=== PATIENT | female | born 1955 | race Two or more races ===

== ENCOUNTER 2018-08-12 08:52 | Observation (INO) | payer OTHER ==
[2018-08-12 09:41] LABS: Absolute Lymphocytes (CBC) 1.9 K/uL (0.7-4.9); Absolute Monocytes 0.9 K/uL (0.1-1.3); Absolute Neutrophil 7.2 K/uL (1.8-8.0); Basophils % 0.3 % (0-1.3); Eosinophils % 0.6 % (0-4.4); Hematocrit 42.4 % (36.0-45.0); Lymphocytes % 18.9 % (15.3-44.8); MPV 7.7 fL (7.6-11.3); Monocytes % 9.2 % (3.3-12.3); RBC Red Blood Cell Count 4.58 M/uL (3.86-4.86)
[2018-08-12] MEDS ORDERED: ONDANSETRON 4 MG/2 ML VIAL ONE (09:53)
[2018-08-12] MEDS ORDERED: MEPERIDINE HCL 25 MG/0.5 ML ONE (09:53)
[2018-08-12 09:57] LABS: Albumin 3.7 g/dL (3.4-5.0); Bilirubin Direct 0.1 mg/dL (0-0.2); Bilirubin Total 0.6 mg/dL (0.2-1.0); Potassium 3.9 mmol/L (3.5-5.1); Protein, Total 7.9 g/dL (6.4-8.2)
[2018-08-12 10:33] LABS: Urine Blood TRACE (NEG); Urine Glucose NEGATIVE (NEG); Urine Protein NEGATIVE (NEG); Urine pH 5.5 (5.0-7.0)
[2018-08-12 10:41] LABS: Urine Bacteria 20-50 /HPF (<20); Urine Culture Reflex Order REFLEXED; Urine RBC <5 /HPF (NONE SEEN)
--- NOTE | 2018-08-12 11:25 | RAD REPORT ---
EXAM DESCRIPTION: CT - Abdomen Pelvis Wo Contrast - 08/12/2018 11:02 am CLINICAL HISTORY: Abdominal pain right lower pain COMPARISON: 2014 TECHNIQUE: Computed axial tomography of the abdomen and pelvis was obtained. IV was not requested. O ral contrast was given. Coronal reconstructions performed. All CT scans are performed using dose optimization technique as appropriate and may include automated exposure control or mA/KV adjustment according to patient size. FINDINGS: The evaluation of solid organs and vessels is limited secondary to the lack of contrast a dministration. 41 millimeter hepatic cyst is decreased in size from the prior exam. Fatty liver The Spleen, pancreas, adrenals and left kidney appear grossly normal. Small low-density right renal masses are nonspecific without IV contrast but probably represent cysts A 35 millimeter left ovarian cyst without significant free-fluid The appendix extends superiorly from the cecum with marked stranding in the adjacent fat. The appendi x is thickened. Small umbilical hernia IMPRESSION: Appendicitis.
--- NOTE | 2018-08-12 11:44 | ER ---
Nurse's Notes [facility] Name: Jim Ibrahim Age: 63 yrs Sex: Female : 1955 Arrival Date: 08/12/2018 Time: 08:55 Bed 15 Private MD: Diagnosis: Acute appendicitis Presentation: 08/12 09:01 Presenting complaint: Patient states: intermittent pain to RLQ and right low back x 2 aa5 days ago. Pt denies N/V/D, denies urinary symptoms. Transition of care: patient was not received from another setting of care. Onset of symptoms was August 2018. Risk Assessment: Do you want to hurt yourself or someone else? Patient reports no desire to harm self or others. Initial Sepsis Screen: Does the patient meet any 2 criteria? No. Patient's initial sepsis screen is negative. Does the patient have a suspected source of infection? No. Patient's initial sepsis screen is negative. Care prior to arrival: None. 09:01 Method Of Arrival: Ambulatory aa5 09:01 Acuity: MARY ANN 3 aa5 Historical: - Allergies: 09:03 Aspirin; aa5 09:03 PENICILLINS; aa5 09:03 Codeine; aa5 - PMHx: 09:03 None; aa5 - PSHx: 09:03 Cholecystectomy; ear sx; aa5 - Immunization history:: Flu vaccine is not up to date. - Social history:: Smoking status: Patient/guardian denies using tobacco. - Ebola Screening: : No symptoms or risks identified at this time. - Family history:: not pertinent. - Hospitalizations: : No recent hospitalization is reported. Screenin:10 Abuse screen: Denies threats or abuse. Nutritional screening: No deficits noted. aa5 Tuberculosis screening: No symptoms or risk factors identified. Fall Risk None identified. Assessment: 09:02 General: Appears uncomfortable, Behavior is calm, cooperative. Pain: Complains of pain aa5 in right lower quadrant and right low back Pain does not radiate. Pain currently is 0 out of 10 on a pain scale. Quality of pain is described as sharp, shooting, Pain began 2-3 days ago. Is intermittent, Noted to be resistant to movement. Neuro: Level of Consciousness is awake, alert, obeys commands, Oriented to person, place, time, situation. Cardiovascular: Heart tones S1 S2 present Rhythm is regular. Respiratory: Airway is patent Respiratory effort is even, unlabored, Respiratory pattern is regular, symmetrical. GI: Abdomen is flat, non-distended, Bowel sounds present X 4 quads. Abd is soft X 4 quads Abdomen is tender to palpation in right lower quadrant. : Denies burning with urination, inability to void, urinary frequency, urgency. EENT: No signs and/or symptoms were reported regarding the EENT system. Derm: Skin is pink, warm \\T\\ dry. Musculoskeletal: Range of motion: intact in all extremities. 09:40 Reassessment: Pt finished CT oral contrast, CT notified . aa5 09:40 Reassessment: Patient is alert, oriented x 3, equal unlabored respirations, skin aa5 warm/dry/pink. 09:40 Reassessment: Pt sitting up in bed, pt refused Zofran and Demerol. Demerol 25 mg total aa5 wasted by me and witnessed by Daly Galdamez RN. Pt states "the pain is okay right now and I don't do well with pain medication" . 09:40 Reassessment: Pt refused IV Demerol. Wasted 25 mg with Mary Kaplan RN. ss 10:28 Reassessment: Patient is alert, oriented x 3, equal unlabored respirations, skin aa5 warm/dry/pink. Pt lying down in bed. Awaiting CT scan, pt notified of wait time. . 10:28 General: Appears comfortable. aa5 10:57 Reassessment: Pt taken to CT via wheelchair . aa5 10:57 Reassessment: Patient is alert, oriented x 3, equal unlabored respirations, skin aa5 warm/dry/pink. 12:10 Reassessment: Surgeon at bedside. em 12:19 Reassessment: Patient is alert, oriented x 3, equal unlabored respirations, skin aa5 warm/dry/pink. Vital Signs: 09:03 BP 123 / 69; Pulse 61; Resp 16 S; Temp 97.7(O); Pulse Ox 98% on R/A; Weight 59.42 kg aa5 (R); Height 4 ft. 11 in. (149.86 cm) (R); Pain 0/10; 10:30 BP 107 / 73; Pulse 60; Resp 16 S; Pulse Ox 97% on R/A; aa5 12:00 BP 105 / 70; Pulse 55; Resp 18 S; Pulse Ox 99% on R/A; aa5 09:03 Body Mass Index 26.46 (59.42 kg, 149.86 cm) aa5 ED Course: 08:55 Patient arrived in ED. mr 09:01 Arm band placed on. aa5 09:01 Patient has correct armband on for positive identification. Placed in gown. Bed in low aa5 position. Call light in reach. Side rails up X 1. Adult w/ patient. 09:02 Triage completed. aa5 09:04 Mary Kaplan, RN is Primary Nurse. aa5 09:08 Hector Coates MD is Attending Physician. rn 09:31 Initial lab(s) drawn, by me, sent to lab. Inserted saline lock: 20 gauge in left dh3 antecubital area, using aseptic technique. Blood collected. 10:12 Urine collected: clean catch specimen, clear. 3 10:21 No provider procedures requiring assistance completed. aa5 11:04 Abdomen In Process Unspecified. EDMS 11:42 Evangelist Drummond MD is Hospitalizing Provider. rn 12:25 Patient admitted, IV remains in place. aa5 Administered Medications: 09:59 Not Given (Patient Refused): Zofran 4 mg IVP once; over 2 minutes aa5 09:59 Not Given (Patient Refused): Demerol - Meperidine 12.5 mg IVP once aa5 11:40 Drug: Flagyl 500 mg Volume: 100 ml; Route: IVPB; Rate: 200 ml/hr; Infused Over: 30 aa5 mins; Site: left antecubital; 12:19 Follow up: Response: No adverse reaction; IV Status: Completed infusion aa5 12:19 Drug: Cipro 400 mg Volume: 200 ml; Route: IVPB; Infused Over: 60 mins; Site: left aa5 antecubital; 12:22 Follow up: Response: No adverse reaction; IV Status: Infusion continued upon admission aa5 Outcome: 11:42 Decision to Hospitalize by Provider. rn 12:22 Admitted to OR accompanied by nurse, via wheelchair, with chart. aa5 12:22 Condition: stable 12:22 Instructed on the need for admit, Demonstrated understanding of instructions. 12:25 Patient left the ED. aa5 Signatures: Dispatcher [employer] EDMS Gonzales, Elizabeth mr Missael, Rebel, CHILD CARE CENTER ADMINISTRATOR CH[facility] CARE CENTER ADMINISTRATOR Hector Pathak MD MD rn Calderon, Audri, RN RN aa5 Daly Galdamez RN RN ss Wagner, Erika 3
--- NOTE | 2018-08-12 11:44 | EDPHYS ---
Physician Documentation [facility] Name: Jim Ibrahim Age: 63 yrs Sex: Female : 1955 Arrival Date: 08/12/2018 Time: 08:55 Bed 15 Private MD: ED Physician Hector Coates HPI: 08/12 09:17 This 63 yrs old Female presents to ER via Ambulatory with complaints of Abdominal rn Pain. 09:17 The patient presents with abdominal pain right lower quadrant. Onset: The rn symptoms/episode began/occurred 2 day(s) ago. The symptoms do not radiate. Associated signs and symptoms: Pertinent positives: nausea, Pertinent negatives: constipation, diarrhea, dysuria, fever, shortness of breath, vomiting. Modifying factors: The symptoms are alleviated by nothing, the symptoms are aggravated by touching the area. Severity of pain: At its worst the pain was moderate in the emergency department the pain is unchanged. The patient has not experienced similar symptoms in the past. The patient has not recently seen a physician. REports RLQ abd pain, began 2 days ago, intermittent, not assoc with vomiting/diarrhea, no urinary symptoms. No hx of kidney stones. Also having right lower back pain.. Historical: - Allergies: 09:03 Aspirin; aa5 09:03 PENICILLINS; aa5 09:03 Codeine; aa5 - PMHx: 09:03 None; aa5 - PSHx: 09:03 Cholecystectomy; ear sx; aa5 - Immunization history:: Flu vaccine is not up to date. - Social history:: Smoking status: Patient/guardian denies using tobacco. - Ebola Screening: : No symptoms or risks identified at this time. - Family history:: not pertinent. - Hospitalizations: : No recent hospitalization is reported. ROS: 09:17 Constitutional: Negative for fever, chills, and weight loss, Eyes: Negative for injury, rn pain, redness, and discharge, Neck: Negative for injury, pain, and swelling, Cardiovascular: Negative for chest pain, palpitations, and edema, Respiratory: Negative for shortness of breath, cough, wheezing, and pleuritic chest pain, Abdomen/GI: + abd pain and nausea, negative for diarrhea and vomiting. MS/Extremity: Negative for injury and deformity, Skin: Negative for injury, rash, and discoloration, Neuro: Negative for headache, weakness, numbness, tingling, and seizure. Exam: 09:17 Constitutional: This is a well developed, well nourished patient who is awake, alert, rn and in no acute distress. Head/Face: Normocephalic, atraumatic. Respiratory: No increased work of breathing, no retractions or nasal flaring. Abdomen/GI: soft, + RLQ tenderness, no rebound, + guarding Back: No spinal tenderness. No costovertebral tenderness. Full range of motion. Skin: Warm, dry with normal turgor. Normal color with no rashes, no lesions, and no evidence of cellulitis. MS/ Extremity: Pulses equal, no cyanosis. Neurovascular intact. Full, normal range of motion. Equal circumference. Neuro: Awake and alert, GCS 15, oriented to person, place, time, and situation. Cranial nerves II-XII grossly intact. Motor strength 5/5 in all extremities. Sensory grossly intact. Vital Signs: 09:03 BP 123 / 69; Pulse 61; Resp 16 S; Temp 97.7(O); Pulse Ox 98% on R/A; Weight 59.42 kg aa5 (R); Height 4 ft. 11 in. (149.86 cm) (R); Pain 0/10; 10:30 BP 107 / 73; Pulse 60; Resp 16 S; Pulse Ox 97% on R/A; aa5 12:00 BP 105 / 70; Pulse 55; Resp 18 S; Pulse Ox 99% on R/A; aa5 09:03 Body Mass Index 26.46 (59.42 kg, 149.86 cm) aa5 MDM: 09:08 Patient medically screened. rn 11:41 Differential diagnosis: appendicitis. Data reviewed: vital signs, nurses notes, laborer cook house test result(s), radiologic studies, CT scan, and as a result, I will admit patient. Counseling: I had a detailed discussion with the patient and/or guardian regarding: the historical points, exam findings, and any diagnostic results supporting the discharge/admit diagnosis, lab results, radiology results, the need for further work-up and treatment in the hospital. Response to treatment: the patient's symptoms have mildly improved after treatment. Admission orders: after a detailed discussion of the patient's condition and case, the admit orders are written by me. ED course: Consulted With Dr. Drummond, will admit to his service, is NPO, abx ordered. Pt refused pain medication and nausea medication.. 08/12 09:14 Order name: Basic Metabolic Panel; Complete Time: 10:00 rn 08/12 09:14 Order name: CBC with Diff; Complete Time: 10:00 rn 08/12 09:14 Order name: Hepatic Function; Complete Time: 10:00 rn 08/12 09:14 Order name: Lipase; Complete Time: 10:00 rn 08/12 09:14 Order name: Urine Microscopic Only; Complete Time: 11:35 rn 08/12 10:12 Order name: Urine Dipstick--Ancillary (enter results); Complete Time: 11:35 eb 08/12 09:19 Order name: Abdomen ; Complete Time: 11:35 EDMS 08/12 10:45 Order name: Urine Culture EDMS 08/12 12:17 Order name: NPO EDMS 08/12 09:14 Order name: IV Saline Lock; Complete Time: 09:32 rn 08/12 09:14 Order name: Labs collected and sent; Complete Time: 09:32 rn 08/12 09:14 Order name: Urine Dipstick-Ancillary (obtain specimen); Complete Time: 09:59 rn Administered Medications: 09:59 Not Given (Patient Refused): Zofran 4 mg IVP once; over 2 minutes aa5 09:59 Not Given (Patient Refused): Demerol - Meperidine 12.5 mg IVP once aa5 11:40 Drug: Flagyl 500 mg Volume: 100 ml; Route: IVPB; Rate: 200 ml/hr; Infused Over: 30 aa5 mins; Site: left antecubital; 12:19 Follow up: Response: No adverse reaction; IV Status: Completed infusion aa5 12:19 Drug: Cipro 400 mg Volume: 200 ml; Route: IVPB; Infused Over: 60 mins; Site: left aa5 antecubital; 12:22 Follow up: Response: No adverse reaction; IV Status: Infusion continued upon admission aa5 Disposition: 08/12/18 11:42 Hospitalization ordered by Evangelist Drummond for Inpatient Admission. Preliminary diagnosis is Acute appendicitis. - Bed requested for Telemetry/MedSurg (Inpatient). - Status is Inpatient Admission. aa5 - Condition is Stable. - Problem is new. - Symptoms have improved. UTI on Admission? No Signatures: Dispatcher [employer] [facility] Hector Coates MD MD rn Calderon, Audri, RN RN aa5 Corrections: (The following items were deleted from the chart) 09:19 09:17 Abdomen Pelvis W Con+CT.RAD.BRZ ordered. [facility] 12:25 11:42 Hospitalization Ordered by Evangelist Drummond MD for Inpatient Admission. Preliminary aa5 diagnosis is Acute appendicitis. Bed requested for Telemetry/MedSurg (Inpatient). Status is Inpatient Admission. Condition is Stable. Problem is new. Symptoms have improved. UTI on Admission? No. rn
[2018-08-12] MEDS ORDERED: CIPROFLOXACIN 400mg IV 400 MG/200 ML BAG IV ONE (11:54)
[2018-08-12] MEDS ORDERED: METRONIDAZOLE 500mg IVPB 500 MG/100 ML BAG IV ONE (11:55)
[2018-08-12] MEDS ORDERED: ONDANSETRON 4 MG/2 ML VIAL IV PRN (12:13)
[2018-08-12] MEDS ORDERED: ROCURONIUM 50 MG/5 ML VIAL IV ONE (12:18)
[2018-08-12] MEDS ORDERED: MIDAZOLAM HCL 2 MG/2 ML INJ ONE (12:18)
[2018-08-12] MEDS ORDERED: PROPOFOL 200 MG/20 ML VIAL IV ONE (12:18)
[2018-08-12] MEDS ORDERED: DEXAMETHASONE 10 MG/ML VIAL ONE (12:18)
[2018-08-12] MEDS ORDERED: LIDOCAINE 2% MPF 5 ML VIAL ONE (12:18)
[2018-08-12] MEDS ORDERED: FENTANYL CITR 100 MCG/2 ML ONE (12:18)
[2018-08-12] MEDS ORDERED: Ringers Lactate 1,000 ML IV ONE (12:42)
[2018-08-12] MEDS ORDERED: D5 0.45 NS 1,000 ML IV SCH (13:00)
--- NOTE | 2018-08-12 13:00 | P.HP ---
Date of Service: 08/12/18 PC: This 63-year-old female presented to the emergency room with severe right lower quadrant abdominal pain for diagnosis and treatment. HPC: Patient had sudden onset of right lower quadrant abdominal pain early this morning. Describes as severe. It still is there. PMH: Negative PSHx: Previous tubal ligation, previous cholecystectomy SOC: Allergic to aspirin codeine and Demerol SYS REVIEW: No cough, wheeze, shortness of breath. No chest pain or palpitations. No urinary complaints. Walks 5 miles a day, and swims Daily O/E awake alert uncomfortable HEENT: Not jaundice Chest: Chest movement equal bilaterally ABD: Tender with guarding in the right lower quad LOCO: Intact DATA: White cell count, CT scan however demonstrates findings consistent with the clinical diagnosis of acute appendicitis IMPRESSION: Acute abdomen with appendicitis PLAN: I will take her to the operating room for laparoscopic possible open appendectomy. The risks of this procedure have been discussed. The possibility of bleeding, infection, injury to bowel and blood vessels, as well as surrounding structures was outlined. The possible need for an open and/or further surgeries and procedures was discussed. She understands and wants us to proceed. We will also address issues at her belly but were she may have a small hernia. She is aware of this.
[2018-08-12] MEDS ORDERED: TRAMADOL 37.5mg/APAP 325mg PER TAB PO PRN (13:52)
--- NOTE | 2018-08-12 13:53 | P.OP ---
Preoperative diagnosis: Acute abdomen with appendicitis Postoperative diagnosis: The same Primary procedure: Laparoscopic appendectomy Anesthesia: General Estimated blood loss: Less than 10 cc Specimen: 1 appendix sent for histopathology Operative Technique: The patient brought to the operating room placed supine on the table. After the induction of adequate general endotracheal anesthesia, the area of the abdomen was prepped with a DuraPrep solution, and she was draped in usual aseptic manner. A subumbilical incision was made. This brought down through the skin and subcutaneous tissue. The Visiport was now used to enter the peritoneal cavity and created pneumoperitoneum to approximately 12 mm of mercury. Under direct vision a 5 mm trocar was placed in the upper midline and another in the lower midline we were now able to visualize the peritoneal cavity. With the patient placed in Trendelenburg and rolled to the left we could see the right lower quadrant. A markedly inflamed appendix was seen going out laterally abutting against the abdominal wall flow and then going into the retroperitoneum. The junction of the appendix with the cecum was identified. An opening was made in this area. The linear Stapler was now placed across the base the appendix and fired. The mesentery of the appendix was taken down and the appendix was dissected in a retro of suspected manner into the retroperitoneum to fully excise it and sent for histopathology. The specimen having been attached was placed into an Endo-Catch and brought out through the umbilical trocar site. Attention was turned back towards the peritoneal cavity. The right lower quadrant was irrigated with a copious amount of saline solution. The effluent was aspirated using the peritoneal cavity. The umbilical trocar site was now approximated using 2 interrupted sutures of absorbable material. At the end of procedure the peritoneum was collapsed, the sutures tied, and heather applied to the skin. It also should be noted we did a TA PP block of the anterior abdominal wall using 0.25% Marcaine on the right side. At the end of procedure she was stable when sent to the recovery room. Needle sponge instrument count were correct. No drains were placed. Complications: None Transferred to: Recovery Room Condition: Good
[2018-08-12 14:24] VITALS: O2SAT 97
[2018-08-12 15:04] VITALS: BMI 26.4
[2018-08-12 16:38] VITALS: BP 135/78; TEMP 97.8
== END 2018-08-12 18:38 | disposition home or self-care (01) ==
LOC: ER 08:52 → ERHOLD 12:13 → INTOOBSV 12:13 → 2ND 14:12
PROVIDERS: ADMIT Surgery; ATTEND Surgery
PROC: 0DTJ4ZZ Resection of Appendix, Percutaneous Endoscopic Approach (ICD-10-PCS; principal; 2018-08-12 12:00)
DX: K35.80 Unspecified acute appendicitis (principal); K76.0 Fatty (change of) liver, not elsewhere classified; K42.9 Umbilical hernia without obstruction or gangrene; N83.292 Other ovarian cyst, left side; K76.89 Other specified diseases of liver
CPT/HCPCS: 36415; 74176; 80048; 80076; 81003; 81015; 83690; 85025; 87086; 87088; 88304; 96365; 96375; 99285; G0378; J0744; J1100; J2175; J2250; J2405; J2704; J3010

== ENCOUNTER 2021-05-07 10:43 | Emergency (ER) | payer OTHER ==
--- OUTSIDE RECORDS SUMMARY | 2021-05-07 10:46 | XMS REPORT | Continuity of Care Document ---
:1955 Author Organization [facility] t Address [address] [place] [address] Care Team Providers Name Role Phone Adair Samuel Attending Clinician Unavailable Adair MOLINA Attending Clinician Unavailable Physician, Primary or Family Admitting Clinician Unavailabl e Payers Payer Name Policy Type Policy Number Effective Date Expiration Date S blanca MEDICARE PART A [id number] 2019 \T\ B 00:00:00 [employer] INDEMNITY [id number] 2019 00:00:00 Problems This patient has no known problems. Allergies, Adverse Reactions, Alerts Allergy Allergy Status Severity Reaction(s) Onset Inactive Treating Comm ents Source Name Type Date Date Clinician NO KNOWN Drug Active [facility] ALLERGIE Class [facility] Medications This patient has no known medications. Procedures This patient has no known procedures. Encounters Start End Encounter Admission Attending Care Care Encounter Source Date/Time Date/Time Type Type Clinicians Facility Department ID 2020-06-03 2020-06-03 [id number] 17:05:00 17:05:00 [id number] [facility] 2020-04-10 2020-04-10 Outpatient Ilda MOLINA [facility] [id number] [facility] 14:50:00 14:50:00 ELVIS [id number] [facility] 2020-04-10 2020-04-10 Outpatient Ilda MOLINA [facility] [id number] [facility] 14:50:00 14:50:00 ELVIS [facility] 2020-03-13 2020-03-13 Outpatient Ilda MOLINA [facility] [id number] [facility] 15:30:00 15:30:00 ELVIS [id number] [facility] 2020-03-13 2020-03-13 Outpatient Ilda MOLINA [facility] [id number] [facility] 15:30:00 15:30:00 ELVIS [facility] 2020-03-13 2020-03-13 Outpatient Ilda MOLINA [facility] [id number] [facility] 15:30:00 15:30:00 ELVIS [facility] 2020-03-13 2020-03-13 [facility] [id number] [facility] 15:30:00 15:30:00 ELVIS [facility] Results This patient has no known results.
--- NOTE | 2021-05-07 11:02 | RAD REPORT ---
EXAM DESCRIPTION: CT - Ct Stroke Brain Wo Cont - 05/07/2021 10:52 am CLINICAL HISTORY: NUMBNESS COMPARISON: No comparisons TECHNIQUE: All CT scans are performed using dose optimization technique as appropriate and may inclu de automated exposure control or mA/KV adjustment according to patient size. FINDINGS: No intracranial hemorrhage, hydrocephalus or extra-axial fluid collection.No areas of brai n edema or evidence of midline shift. The paranasal sinuses and mastoids are clear. The calvarium is intact. IMPRESSION: No acute intracranial abnormality. Discussed with Angelo by Luz at 1057 at 05/07/21
[2021-05-07 11:34] LABS: Absolute Lymphocytes (CBC) 2.1 K/uL (0.7-4.9); Hematocrit 41.4 % (36.0-45.0); RBC Red Blood Cell Count 4.49 M/uL (3.86-4.86)
[2021-05-07] MEDS ORDERED: dexAMETHasone 10 MG/ML VIAL ONE (12:07)
[2021-05-07 12:19] LABS: Protime INR 0.93
[2021-05-07 12:25] LABS: Potassium 3.7 mmol/L (3.5-5.1)
--- NOTE | 2021-05-07 12:43 | ER ---
Nurse's Notes [facility] Name: Jim Ibrahim Age: 65 yrs Sex: Female : 1955 Arrival Date: 05/07/2021 Time: 10:44 Bed 3 Private MD: Diagnosis: Mendez's palsy Presentation: 05/07 10:40 Chief complaint: Patient states: I woke up today and was drinking some water and it was jg9 running out of my mouth, I was ok when I went to bed. Right sided facial droop noted, no other symptoms reported at this time. 10:40 Method Of Arrival: Ambulatory j9 10:40 Acuity: MARY ANN 2 jg9 10:50 Ebola Screen: Patient negative for fever greater than or equal to 101.5 degrees jg9 Fahrenheit, and additional compatible Ebola Virus Disease symptoms Patient denies exposure to infectious person. Patient denies travel to an Ebola-affected area in the 21 days before illness onset. Initial Sepsis Screen: Does the patient meet any 2 criteria?. Risk Assessment: Do you want to hurt yourself or someone else? Patient reports no desire to harm self or others. Onset of symptoms is unknown. 13:03 Coronavirus screen: Vaccine status: Patient reports receiving the 2nd dose of the covid ll1 vaccine. Client denies travel out of the [place] in the last 14 days. At this time, the client does not indicate any symptoms associated with coronavirus-19. Initial Sepsis Screen: Does the patient have a suspected source of infection? No. Patient's initial sepsis screen is negative. Triage Assessment: 10:40 General: Appears in no apparent distress. Behavior is calm. Pain: Denies pain. Neuro: jg9 Level of Consciousness is awake, alert, obeys commands, Oriented to person, place, time, situation, Court Attendant are equal bilaterally Moves all extremities. Gait is steady, Speech is slurred, Facial droop on right, Pupils are PERRLA, Intact. Historical: - Allergies: 10:50 Aspirin; jg9 10:50 Codeine; jg9 10:50 PENICILLINS; jg9 - Immunization history:: Adult Immunizations up to date. - Social history:: Smoking status: Patient denies any tobacco usage or history of. Screenin:50 Abuse screen: Denies threats or abuse. Denies injuries from another. Nutritional jg9 screening: No deficits noted. Tuberculosis screening: No symptoms or risk factors identified. Fall Risk None identified. Assessment: 11:27 Reassessment: No changes from previously documented assessment. Patient and/or family ll1 updated on plan of care and expected duration. Pain level reassessed. Patient is alert, oriented x 3, equal unlabored respirations, skin warm/dry/pink. 12:30 Reassessment: No changes from previously documented assessment. Patient and/or family ll1 updated on plan of care and expected duration. Pain level reassessed. Patient is alert, oriented x 3, equal unlabored respirations, skin warm/dry/pink. 13:02 Reassessment: No changes from previously documented assessment. Patient and/or family ll1 updated on plan of care and expected duration. Pain level reassessed. Patient is alert, oriented x 3, equal unlabored respirations, skin warm/dry/pink. Patient states feeling better. Patient states symptoms have improved. Vital Signs: 11:27 BP 131 / 88; Pulse 58; Resp 18; Pulse Ox 97% on R/A; ll1 13:01 BP 118 / 76; Pulse 50; Resp 17; Temp 98.0; Pulse Ox 98% on R/A; Pain 0/10; ll1 NIH Stroke Scale Scores: 10:57 NIHSS Score: 1 pm1 ED Course: 10:44 Patient arrived in ED. ds1 10:46 Cristi Stephens NP is PHCP. pm1 10:46 Feliz Griggs MD is Attending Physician. pm1 10:49 Triage completed. jg9 10:50 Nilay Bernabe, RN is Primary Nurse. ll1 10:50 Arm band placed on right wrist. jg9 10:50 Patient placed in an exam room, on a stretcher. ll1 10:50 Patient has correct armband on for positive identification. Bed in low position. Call ll1 light in reach. Side rails up X2. longwall shearer operator on. Pulse ox on. NIBP on. 10:52 CT Stroke Brain w/o Contrast In Process Unspecified. EDMS 11:26 Inserted saline lock: 22 gauge in left wrist, using aseptic technique. Blood collected. ll1 12:33 Stroke CXR 1 View In Process Unspecified. EDMS 12:42 John Toure MD is Referral Physician. pm1 13:01 No provider procedures requiring assistance completed. IV discontinued, intact, ll1 bleeding controlled, No redness/swelling at site. Pressure dressing applied. 13:03 passed swallow screen, no problems. ll1 Administered Medications: 12:09 Drug: Decadron - Dexamethasone 10 mg Route: IVP; Site: left wrist; ll1 13:02 Follow up: Response: No adverse reaction 1 Outcome: 12:42 Discharge ordered by . pm1 13:03 Discharged to home via ambulance. ll1 13:03 Condition: stable 13:03 Discharge instructions given to patient, family, Instructed on discharge instructions, follow up and referral plans. medication usage, Demonstrated understanding of instructions, follow-up care, medications, Prescriptions given X 1. 13:04 Patient left the ED. ll1 NIH Stroke Scale - NIH Stroke Score Date: 05/07/2021 Time: 10:57 Total Score = 1 1a. Level of Consciousness (LOC) - 0(Alert) 1b. Level of Consciousness (LOC) (Month \T\ Age) - 0(Both) 1c. LOC Commands (Open \T\ Closes Eyes/Dot Net Developer) - 0(Both) 2. Best Gaze (Lateral Gaze Paresis) - 0(Normal) 3. Visual Field Loss - 0(No visual loss) 4. Facial Palsy - 1(Minor Paralysis) 5a. Left Arm: Motor (10-second hold) - 0(No drift) 5b. Right Arm: Motor (10-second hold) - 0(No drift) 6a. Left Leg: Motor (5-second hold - always test supine) - 0(No drift) 6b. Right Leg: Motor (5-second hold - always test supine) - 0(No drift) 7. Limb Ataxia (finger/nose \T\ heel/linares - test with eyes open) - 0(Absent) 8. Sensory Loss (pinprick arms/legs/face) - 0(Normal) 9. Best Language: Aphasia (description/naming/reading) - 0(No aphasia) 10. Dysarthria (speech clarity - read or repeat words) - 0(Normal) 11. Extinction and Inattention (visual/tactile/auditory/spatial/personal) - 0(No abnormality) Initials: pm1 Signatures: Dispatcher [employer] [facility] Michaelle Pedersen dsCristi Hernandez NP COMPLIANCE REPRESENTATIVE DEALER pm1 Nilay Bernabe, RN RN ll1 Tamia Moy, RN RN jg9
--- NOTE | 2021-05-07 12:43 | EDPHYS ---
Physician Documentation [facility] Name: Jim Ibrahim Age: 65 yrs Sex: Female : 1955 Arrival Date: 05/07/2021 Time: 10:44 Bed 3 Private MD: ED Physician Feliz Griggs HPI: 05/07 10:48 This 65 yrs old Female presents to ER via Ambulatory with complaints of Weakness. pm1 10:48 The patient's problem is reported as weakness, in the left side of face. pm1 10:48 Onset: The symptoms/episode began/occurred this morning. Duration: The episode is pm1 continuous. Context: symptoms became apparent when she attempted to drink water. The water fell out of her mouth, occurred at home. The symptoms are alleviated by nothing. The symptoms are aggravated by nothing. Associated signs and symptoms: Pertinent positives: left eye blurry vision and circumoral numbness. Severity of symptoms: in the emergency department the symptoms are unchanged. Patient's baseline: Neuro: alert and fully oriented, Motor: no deficits, Ambulation: walks without assistance, Speech: normal. The patient has not experienced similar symptoms in the past, but family has similar symptoms, daughter, dx with bells palsy in the past. The patient has not recently seen a physician. Historical: - Allergies: 10:50 Aspirin; jg9 10:50 Codeine; jg9 10:50 PENICILLINS; jg9 - Immunization history:: Adult Immunizations up to date. - Social history:: Smoking status: Patient denies any tobacco usage or history of. ROS: 10:48 Constitutional: Negative for fever, chills, and weight loss, Cardiovascular: Negative pm1 for chest pain, palpitations, and edema, Respiratory: Negative for shortness of breath, cough, wheezing, and pleuritic chest pain, Abdomen/GI: Negative for abdominal pain, nausea, vomiting, diarrhea, and constipation, Back: Negative for injury and pain, MS/Extremity: Negative for injury and deformity, Skin: Negative for injury, rash, and discoloration. 10:48 Neuro: Positive for numbness, weakness, of the left side of face. 10:48 All other systems are negative. Exam: 10:57 Radiologist reports: Negative CT head pm1 10:57 Constitutional: This is a well developed, well nourished patient who is awake, alert, and in no acute distress. Head/Face: Normocephalic, atraumatic. 10:57 Back: No spinal tenderness. No costovertebral tenderness. Full range of motion. Skin: Warm, dry with normal turgor. Normal color with no rashes, no lesions, and no evidence of cellulitis. MS/ Extremity: Pulses equal, no cyanosis. Neurovascular intact. Full, normal range of motion. 10:57 Cardiovascular: Exam negative for acute changes, Rate: normal, Rhythm: regular, Pulses: no pulse deficits are appreciated. 10:57 Respiratory: Exam negative for acute changes, respiratory distress, shortness of breath, Breath sounds: are clear throughout. 10:57 Abdomen/GI: Exam negative for acute changes, Inspection: abdomen appears normal, Palpation: abdomen is soft and non-tender, in all quadrants. 10:57 Neuro: Orientation: is normal, Mentation: is normal, Memory: is normal, Cranial nerves: CN II- XII are normal as tested, Cerebellar function: normal finger to nose testing, Motor: moves all fours, strength is 5/5 in all extremities, Sensation: no obvious gross deficits. 10:57 Neuro: Patient with smile drawing to the right side. Patient with difficulty fully closing left eyelids and left side of forehead sparing with raising eyebrows. Vital Signs: 11:27 BP 131 / 88; Pulse 58; Resp 18; Pulse Ox 97% on R/A; ll1 13:01 BP 118 / 76; Pulse 50; Resp 17; Temp 98.0; Pulse Ox 98% on R/A; Pain 0/10; ll1 NIH Stroke Scale Scores: 10:57 NIHSS Score: 1 pm1 MDM: 10:47 Patient medically screened. pm1 10:58 ED course: Negative CT head report. pm1 11:22 ED course: Dr. Archibald evaluated the patient and agrees that the patient has Mendez's pm1 Palsy, not stroke. 12:20 Data reviewed: vital signs. Data interpreted: Pulse oximetry: on room air is 98 %. pm1 Interpretation: normal. 13:02 ED course: Patient with improvement of symptoms with steroid given in the ER. pm1 13:02 Counseling: I had a detailed discussion with the patient and/or guardian regarding: the pm1 historical points, exam findings, and any diagnostic results supporting the discharge/admit diagnosis, lab results, radiology results, the need for outpatient follow up, a family practitioner, a neurologist, to return to the emergency department if symptoms worsen or persist or if there are any questions or concerns that arise at home. 05/07 10:48 Order name: Basic Metabolic Panel; Complete Time: 12:33 pm1 05/07 10:48 Order name: CBC with Diff; Complete Time: 11:45 pm1 05/07 10:48 Order name: Protime (+inr); Complete Time: 12:20 pm1 05/07 10:48 Order name: Ptt, Activated; Complete Time: 12:20 pm1 05/07 10:48 Order name: CT Stroke Brain w/o Contrast; Complete Time: 11:22 pm1 05/07 11:10 Order name: Glucose, Ancillary Testing; Complete Time: 11:22 EDMS 05/07 10:48 Order name: Stroke CXR 1 View; Complete Time: 13:02 pm1 05/07 10:48 Order name: EKG; Complete Time: 10:49 pm1 05/07 10:48 Order name: Accucheck; Complete Time: 11:15 pm1 05/07 10:48 Order name: Cardiac monitoring; Complete Time: 11:15 pm1 05/07 10:48 Order name: EKG - Nurse/Tech; Complete Time: 11:15 pm1 05/07 10:48 Order name: IV Saline Lock; Complete Time: 11:14 pm1 05/07 10:48 Order name: Labs collected and sent; Complete Time: 11:14 pm1 05/07 10:48 Order name: NPO; Complete Time: 11:14 pm1 05/07 10:48 Order name: O2 Per Protocol; Complete Time: 11:14 pm1 05/07 10:48 Order name: O2 Sat Monitoring; Complete Time: 11:14 pm1 05/07 10:48 Order name: Stroke Swallow Screen; Complete Time: 13:02 pm1 05/07 11:36 Order name: Labs - recollect needed: recollect green and blue top; Complete Time: 11:49 bd Administered Medications: 12:09 Drug: Decadron - Dexamethasone 10 mg Route: IVP; Site: left wrist; ll1 13:02 Follow up: Response: No adverse reaction ll1 Disposition Summary: 05/07/21 12:42 Discharge Ordered Location: Home pm1 Problem: new pm1 Symptoms: have improved pm1 Condition: Stable pm1 Diagnosis - Mendez's palsy pm1 Followup: pm1 - With: Emergency Department - When: As needed - Reason: Worsening of condition Followup: pm1 - With: Private Physician - When: 2 - 3 days - Reason: Recheck today's complaints, Continuance of care, Re-evaluation by your physician Followup: pm1 - With: John Toure MD - When: 2 - 3 days - Reason: Recheck today's complaints, Continuance of care, Re-evaluation by your physician Discharge Instructions: - Discharge Summary Sheet pm1 - Mendez Palsy, Adult pm1 Forms: - Medication Reconciliation Form pm1 - Thank You Letter pm1 - Antibiotic Education pm1 - Prescription Opioid Use pm1 Prescriptions: - prednisone 10 mg Oral tablet - take 6 tablet by ORAL route once daily for 5 days then 4 tablets once daily for pm1 2 days, then 2 tablets once daily for 2 days, then 1 tablet once daily for 2 days; 44 tablet; Refills: 0, Product Selection Permitted NIH Stroke Scale - NIH Stroke Score Date: 05/07/2021 Time: 10:57 Total Score = 1 1a. Level of Consciousness (LOC) - 0(Alert) 1b. Level of Consciousness (LOC) (Month \T\ Age) - 0(Both) 1c. LOC Commands (Open \T\ Closes Eyes/Honey Producer) - 0(Both) 2. Best Gaze (Lateral Gaze Paresis) - 0(Normal) 3. Visual Field Loss - 0(No visual loss) 4. Facial Palsy - 1(Minor Paralysis) 5a. Left Arm: Motor (10-second hold) - 0(No drift) 5b. Right Arm: Motor (10-second hold) - 0(No drift) 6a. Left Leg: Motor (5-second hold - always test supine) - 0(No drift) 6b. Right Leg: Motor (5-second hold - always test supine) - 0(No drift) 7. Limb Ataxia (finger/nose \T\ heel/linares - test with eyes open) - 0(Absent) 8. Sensory Loss (pinprick arms/legs/face) - 0(Normal) 9. Best Language: Aphasia (description/naming/reading) - 0(No aphasia) 10. Dysarthria (speech clarity - read or repeat words) - 0(Normal) 11. Extinction and Inattention (visual/tactile/auditory/spatial/personal) - 0(No abnormality) Initials: pm1 Signatures: Dispatcher [employer] EDHelga Saldaña Patrick, RECORDS SUPERVISOR RECORDS SUPERVISOR pm1 Nilay Bernabe RN RN ll1 Tamia Moy RN RN jg9 Corrections: (The following items were deleted from the chart) 17:50 10:48 This 65 yrs old Female presents to ER via Ambulatory with complaints of pm1 Numbness, Blurred Vision. pm1
--- NOTE | 2021-05-07 12:58 | RAD REPORT ---
EXAM DESCRIPTION: RAD - Chest Single View - 05/07/2021 12:32 pm CLINICAL HISTORY: numbness, blurred vision COMPARISON: Chest Pa And Lat (2 Views) dated 06/27/2019; Chest Pa And Lat (2 Views) dated 10/26/2017; CHEST SINGLE VIEW dated 06/11/2014 FINDINGS: Lines: None. Lungs: No evidence of edema or pneumonia. Pleural: No significant pleural effusions or pneumothorax. Cardiac: The heart size is within normal limits. Bones: No acute fractures. Other: IMPRESSION: No acute cardiopulmonary disease.
[2021-05-07 13:12] VITALS: BP 118/76; TEMP 98; O2SAT 98
== END 2021-05-07 13:04 | disposition home or self-care (01) ==
LOC: ER 10:43
DX: G51.0 Bell's palsy (principal); Z88.0 Allergy status to penicillin; Z88.5 Allergy status to narcotic agent; Z88.6 Allergy status to analgesic agent
CPT/HCPCS: 93005; 85025; 80048; 36415; 85610; 82947; 85730; 70450; 71045; 96374; 99284; J1100

== ENCOUNTER 2024-06-14 18:31 | Emergency (ER) | payer OTHER ==
--- OUTSIDE RECORDS SUMMARY | 2024-06-14 18:33 | XMS REPORT | Continuity of Care Document ---
Author Name Unknown Address [address] [place] [address] [facility] Address [address] [place] [address] Care Team Providers Care Green Chain Worker Name Role Phone Doug Samuel Attending Clinician ELVIS Redman Attending Clinician Unavailable Doug Samuel Admitting Clinician Unavailable Physician, No Primary or Family Admitting Clinic antionette Unavailable Payers Payer Name Policy Type Policy Number Effective Date Expirati on Date Source MEDICARE PART A \T\ B [id number] 2019 00:00:00 [employer] INDEMNITY [id number] 2019 00:00:00 Allergies, Adverse Reactions, Alerts Allergy Name Allergy Type Status Severity Reaction(s) Onset Date Inactive Date Treating Clinician Comments Source NO KNOWN ALLERGIE S Drug Class Active [facility] Encounters Start Date/Time End Date/Time Encounter Type Admission Type Attending Clinicians Care Facility Care Department Encounter ID Source 2021-07-16 12:00:00 2021-07-16 12:00:00 Outpatient Doug Paredes [facility] [id number] [facility] 2020-06-03 17:05:00 2020-06-03 17:05:00 Outpatient Doug Paredes [id number] [facility] 2020-04-10 14:50:00 2020-04-10 14:50:00 Outpatient ELVIS [facility]OS[facility] [id number] [facility] 2020-04-10 14:50:00 2020-04-10 14:50:00 Outpatient ELVIS JOSHI [facility] [id number] [facility] 2020-03-13 15:30:00 2020-03-13 15:30:00 Outpatient ELVIS JOSHI [facility] [id number] [facility] 2020-03-13 15:30:00 2020-03-13 15:30:00 Outpatient ELVIS JOSHI [facility] [id number] [facility] 2020-03-13 15:30:00 2020-03-13 15:30:00 Outpatient ELVIS JOSHI [facility] [id number] [facility] 2020-03-13 15:30:00 2020-03-13 15:30:00 Outpatient ELVIS JOSHI [facility] [id number] [facility]
[2024-06-14 19:10] LABS: Absolute Eosinophils 0.1 K/uL (0-0.5); Absolute Lymphocytes (CBC) 2.9 K/uL (0.7-4.9); Absolute Monocytes 0.5 K/uL (0.1-1.3); Absolute Neutrophil 2.1 K/uL (1.8-8.0); Basophils % 0.4 % (0-1.3); Eosinophils % 2.1 % (0-4.4); Hematocrit 37.1 % (36.0-45.0); Hemoglobin 13.2 g/dL (12.0-15.0); MCH 32.7 pg (27.0-35.0); MCHC 35.6 g/dL (32.0-36.0); MCV 91.8 fL (80-100); MPV 7.2 fL (7.6-11.3); Neutrophils % 37.5 % (41.7-73.7); Nucleated Red Blood Cells % 0.1 % (0-0); Platelets 184 thou/uL (152-406); RBC Red Blood Cell Count 4.04 M/uL (3.86-4.86)
[2024-06-14 19:26] LABS: Anion Gap 8.4 mEq/L (5.0-15.0); BUN Blood Urea Nitrogen 12 mg/dL (7-18); Bicarbonate 27 mEq/L (21-32); Glomerular Filtration Rate 69 ml/min (=/>90); Glucose Level 161 mg/dL (74-106); NT PRO-BNP 55 pg/mL (<125); Potassium 3.4 mEq/L (3.5-5.1); Sodium Level 138 mEq/L (136-145); Troponin High Sensitivity < 3.0 pg/mL (<58.9)
--- NOTE | 2024-06-14 20:47 | RAD REPORT ---
EXAMINATION: ONE VIEW CHEST XR CLINICAL INDICATION: Female, 69 years old.,DYSPNEA TECHNIQUE: Frontal chest projection is submitted. Examination is limited by patient positioning and t echnique. COMPARISON: 05/07/2021 FINDINGS: The lungs are well inflated and clear. No pneumothorax or sizable effusion. The heart is normal in s ize. Mediastinal contours are unremarkable. IMPRESSION: No acute intrathoracic abnormalities.
--- NOTE | 2024-06-14 21:23 | EDPHYS ---
Physician Documentation [facility] Name: Jim Ibrahim Age: 69 yrs Sex: Female : 1955 Arrival Date: 06/14/2024 Time: 18:31 Bed 15 Private MD: ED Physician Pedrito Patel HPI: 06/14 21:26 This 69 yrs old [place] Female presents to ER via Ambulatory with complaints of ms3 Breathing Difficulty. 21:26 69-year-old female with no past medical history presents to the emergency department ms3 for shortness of breath that been ongoing for 5 weeks. Patient states she has had shortness of breath for 1 week. Patient states she has had sharp chest pain ongoing for 3 days. Patient states she has been seen in the emergency department twice and was seen by her primary care physician today. Patient states her discomfort is a 6/10. She denies any alleviating or inciting factors.. Historical: - Allergies: 18:40 Aspirin; iw 18:40 Codeine; iw 18:40 PENICILLINS; iw - Immunization history:: Adult Immunizations unknown. - Infectious Disease History:: Denies. - Social history:: Smoking status: unknown. ROS: 21:26 Constitutional: Negative for fever, and chills. Cardiovascular: Negative for chest ms3 pain, and palpitations. 21:26 MS/Extremity: Negative for injury and deformity, Skin: Negative for injury, rash, and discoloration, 21:26 Respiratory: Positive for cough, shortness of breath, Exam: 21:26 Constitutional: This is a well developed, well nourished patient who is awake, alert, ms3 and in no acute distress. Cardiovascular: Regular rate and rhythm with a normal S1 and S2. No gallops, murmurs, or rubs. Normal PMI, no JVD. No pulse deficits. Respiratory: Lungs have equal breath sounds bilaterally, clear to auscultation and percussion. No rales, rhonchi or wheezes noted. No increased work of breathing, no retractions or nasal flaring. Abdomen/GI: Soft, non-tender, with normal bowel sounds. No distension or tympany. No guarding or rebound. No evidence of tenderness throughout. Skin: Warm, dry with normal turgor. Normal color with no rashes, no lesions, and no evidence of cellulitis. MS/ Extremity: Pulses equal, no cyanosis. Neurovascular intact. Full, normal range of motion. 22:17 ECG was reviewed by the Attending Physician. ms3 Vital Signs: 18:35 BP 150 / 89; Pulse 67; Resp 19; Temp 97.8; Pulse Ox 100% on R/A; Weight 57.15 kg; iw Height 4 ft. 11 in. ; 21:00 BP 123 / 72; Pulse 53; Resp 17; Temp 98; Pulse Ox 99% on R/A; Pain 0/10; rg5 18:35 Body Mass Index 25.45 (57.15 kg, 149.86 cm) iw 21:00 Pain Scale: Adult rg5 MDM: 18:50 Medical Screening Exam initiated ms3 21:26 Differential diagnosis: Anemia CHF exacerbation, Myocardial Infarction pulmonary edema. ms3 Data reviewed: vital signs, nurses notes, lab test result(s), EKG, radiologic studies, and as a result, I will discharge patient. Independent interpretation of the following test(s) in the Emergency Department EKG: See my EKG interpretation above. Counseling: I had a detailed discussion with the patient and/or guardian regarding the historical points, exam findings, and any diagnostic results supporting the discharge/admit diagnosis, lab results, radiology results, the need for outpatient follow up, to return to the emergency department if symptoms worsen or persist or if there are any questions or concerns that arise at home. Special discussion: Based on the patient's history, exam, and Dx evaluation, there is no indication for emergent intervention or inpatient Tx. It is understood by the patient/guardian that if the Sx's persist or worsen they need to return immediately for re-evaluation. ED course: On reevaluation patient remains alert and oriented x 4, no apparent distress, nontoxic-appearing, speaking full sentences. Patient to follow-up with her primary care physician in 1 to 2 days. Patient understands and agrees with plan. All questions were answered. Return precautions discussed include worsening symptoms, or any other concerns. Discussed [id number] medications with the patient.. 06/14 18:38 Order name: Basic Metabolic Panel; Complete Time: 20:57 ms3 06/14 18:38 Order name: CBC with Diff; Complete Time: 20:57 ms3 06/14 18:38 Order name: Magnesium; Complete Time: 20:57 ms3 04/09 18:38 Order name: NT PRO-BNP; Complete Time: 20:57 ms3 06/14 18:38 Order name: Troponin HS; Complete Time: 20:57 ms3 06/14 18:42 Order name: D-Dimer; Complete Time: 20:57 iw 06/14 18:38 Order name: XRAY Chest (1 view); Complete Time: 20:57 ms3 06/14 18:38 Order name: Cardiac monitoring; Complete Time: 21:10 ms3 06/14 18:38 Order name: EKG - Nurse/Tech; Complete Time: 19:00 ms3 06/14 18:38 Order name: IV Saline Lock; Complete Time: 19:00 ms3 06/14 18:38 Order name: Labs collected and sent; Complete Time: 19:00 ms3 06/14 18:38 Order name: O2 Per Protocol; Complete Time: 21:10 ms3 06/14 18:38 Order name: O2 Sat Monitoring; Complete Time: 21:10 ms3 EC:17 Rate is 69 beats/min. Rhythm is regular. QRS [place] is Normal. OR interval is normal. QRS ms3 interval is normal. Clinical impression: Normal ECG. Interpreted by me. Reviewed by me. Administered Medications: No medications were administered Disposition Summary: 06/14/24 21:22 Discharge Ordered Notes: Location: Home ms3 Condition: Stable ms3 Diagnosis - Cough ms3 - Dyspnea, unspecified ms3 - Acute upper respiratory infection, unspecified ms3 Followup: ms3 - With: Private Physician - When: 2 - 3 days - Reason: Recheck today's complaints Discharge Instructions: - Discharge Summary Sheet ms3 - Upper Respiratory Infection, Adult ms3 - Cough, Adult ms3 Forms: - Medication Reconciliation Form ms3 - Antibiotic Education ms3 - Prescription Opioid Use ms3 - Patient Portal Instructions ms3 - Leadership Thank You Letter ms3 Signatures: Dispatcher [employer] Erica Wright, RN Pedrito Sanchez DO DO ms3 Remington Echols RN RN rg5 Corrections: (The following items were deleted from the chart) 18:39 18:39 BASIC METABOLIC PANEL+C.LAB.BRZ ordered. EDMS EDMS 18:39 18:39 CBC+H.LAB.BRZ ordered. EDMS EDMS 18:39 18:39 MAGNESIUM+C.LAB.BRZ ordered. EDMS EDMS 18:39 18:39 PROBNP+C.LAB.BRZ ordered. EDMS EDMS 18:39 18:39 Troponin High Sensitivity+C.LAB.BRZ ordered. EDMS EDMS
--- NOTE | 2024-06-14 21:23 | ER ---
Nurse's Notes [facility] [place] Name: Jim Ibrahim Age: 69 yrs Sex: Female : 1955 Arrival Date: 06/14/2024 Time: 18:31 Bed 15 Private MD: Diagnosis: Cough;Dyspnea, unspecified;Acute upper respiratory infection, unspecified Presentation: 06/14 18:35 Chief complaint: Patient states: she has had SOB and a cough for a long time, she took iw her inhaler today about 30 minutes ago and the SOB and breathing difficulty got worse. Coronavirus screen: At this time, the client does not indicate any symptoms associated with coronavirus-19. Ebola Screen: No symptoms or risks identified at this time. Initial Sepsis Screen: Does the patient meet any 2 criteria? No. Patient's initial sepsis screen is negative. Does the patient have a suspected source of infection? No. Patient's initial sepsis screen is negative. Risk Assessment: Do you want to hurt yourself or someone else? Patient reports no desire to harm self or others. 18:35 Method Of Arrival: Ambulatory iw 18:35 Acuity: MARY ANN 3 iw Historical: - Allergies: 18:40 Aspirin; iw 18:40 Codeine; iw 18:40 PENICILLINS; iw - Immunization history:: Adult Immunizations unknown. - Infectious Disease History:: Denies. - Social history:: Smoking status: unknown. Screenin:00 [facility] ED Fall Risk Assessment (Adult) History of falling in the last 3 months, rg5 including since admission No falls in past 3 months (0 pts) Confusion or Disorientation No (0 pts) Intoxicated or Sedated No (0 pts) Impaired Gait No (0 pts) Mobility Assist Device Used No (0 pt) Altered Elimination No (0 pt) Score/Fall Risk Level 0 - 2 = Low Risk Oriented to surroundings. Abuse screen: Denies threats or abuse. Nutritional screening: No deficits noted. Tuberculosis screening: No symptoms or risk factors identified. Assessment: 21:00 General: Appears in no apparent distress. comfortable, Behavior is calm, cooperative, rg5 appropriate for age. 21:00 Pain: Denies pain. Neuro: Level of Consciousness is awake, alert, obeys commands, rg5 Oriented to person, place, time, situation. Cardiovascular: Denies chest pain, Rhythm is sinus rhythm. Respiratory: Airway is patent Trachea midline Respiratory effort is even, unlabored, Breath sounds are clear. GI: No signs and/or symptoms were reported involving the gastrointestinal system. : No signs and/or symptoms were reported regarding the genitourinary system. EENT: No deficits noted. Derm: No deficits noted. Skin is intact, Skin is dry, Skin is normal, Skin temperature is warm. Musculoskeletal: Circulation, motion, and sensation intact. Range of motion: intact in all extremities. Vital Signs: 18:35 BP 150 / 89; Pulse 67; Resp 19; Temp 97.8; Pulse Ox 100% on R/A; Weight 57.15 kg; iw Height 4 ft. 11 in. ; 21:00 BP 123 / 72; Pulse 53; Resp 17; Temp 98; Pulse Ox 99% on R/A; Pain 0/10; rg5 18:35 Body Mass Index 25.45 (57.15 kg, 149.86 cm) iw 21:00 Pain Scale: Adult rg5 ED Course: 18:33 Patient arrived in ED. mr 18:38 Pedrito Patel DO is Attending Physician. ms3 18:40 Triage completed. iw 18:42 Arm band placed on. iw 19:00 Basic Metabolic Panel Sent. cc6 19:00 CBC with Diff Sent. cc6 19:00 Magnesium Sent. cc6 19:00 NT PRO-BNP Sent. cc6 19:00 Troponin HS Sent. cc6 19:01 Inserted saline lock: 22 gauge in right forearm, using aseptic technique. Blood cc6 collected. Flushed with 10 mL NS. 19:29 XRAY Chest (1 view) In Process Unspecified. EDMS 21:00 Patient has correct armband on for positive identification. Provided Education on: post rg5 er care done. 21:10 Remington Echols, RN is Primary Nurse. rg5 21:28 No provider procedures requiring assistance completed. IV discontinued, bleeding rg5 controlled, No redness/swelling at site. Pressure dressing applied. Administered Medications: No medications were administered Medication: 21:00 VIS not applicable for this client. rg5 Outcome: 21:22 Discharge ordered by . ms3 21:28 Discharged to home ambulatory, rg5 21:28 Condition: stable 21:28 Instructed on discharge instructions, Demonstrated understanding of instructions, follow-up care, 21:33 Patient left the ED. rg5 Signatures: Dispatcher [employer] EDMS Elizabeth Gonzales, Reg Reg mr Erica Curry, RN RN iw Pedrito Patel DO DO ms3 Remington Echols RN RN rg5 Bruna Courtney cc6
[2024-06-14 22:54] VITALS: BP 123/72; TEMP 98; O2SAT 99
--- NOTE | 2024-06-15 11:46 | EKG ---
Test Date: 2024-06-14 Test Time: 18:48:05 [employer] Technical Assistant: MAGALYS MEASUREMENT RESULTS: Intervals: Rate: 69 LA: 152 QRSD: 74 QT: 430 QTc: 460 Sterling: P: 64 LA: 152 QRS: 50 T: 67 INTERPRETIVE STATEMENTS: Normal sinus rhythm Normal ECG Compared to ECG 05/07/2021 10:57:41 Sinus bradycardia no longer present Electronically Signed On 06-15-24 11:45:56 CDT by Manuel Ruth
== END 2024-06-14 21:33 | disposition home or self-care (01) ==
LOC: ER 18:31
DX: J06.9 Acute upper respiratory infection, unspecified (principal); R05.9 Cough, unspecified
CPT/HCPCS: 36415; 71045; 80048; 83735; 83880; 84484; 85025; 85379; 93005

== ENCOUNTER 2024-10-23 11:52 | Emergency (ER) | payer OTHER ==
--- OUTSIDE RECORDS SUMMARY | 2024-10-23 11:55 | XMS REPORT | Continuity of Care Document ---
Author Name Unknown Address [address] [place] [address] [facility] Address [address] [place] [address] Care Team Providers Care Photo Checker And Assembler Name Role Phone Doug Samuel Attending Clinician ELVIS Redman Attending Clinician Unavailable Doug Smauel Admitting Clinician Unavailable Physician, No Primary or Family Admitting Clinic antionette Unavailable Payers Payer Name Policy Type Policy Number Effective Date Expirati on Date Source MEDICARE PART A \T\ B [id number] 2019 00:00:00 [employer] INDEMNITY [id number] 2019 00:00:00 Allergies, Adverse Reactions, Alerts Allergy Name Allergy Type Status Severity Reaction(s) Onset Date Inactive Date Treating Clinician Comments Source NO KNOWN ALLERGIE S Drug Class Active [facility] Encounters Start Date/Time End Date/Time Encounter Type Admission Type Attending Clinicians Care Facility Care Department Encounter ID Source 2021-07-16 12:00:00 2021-07-16 12:00:00 [id number] 2020-06-03 17:05:00 2020-06-03 17:05:00 Outpatient Doug Paredes [id number] [facility] 2020-04-10 14:50:00 2020-04-10 14:50:00 Outpatient ELVIS [facility] [id number] [facility] 2020-04-10 14:50:00 2020-04-10 14:50:00 Outpatient ELVIS [facility] [id number] [facility] 2020-03-13 15:30:00 2020-03-13 15:30:00 Outpatient ELVIS [facility] [id number] [facility] 2020-03-13 15:30:00 2020-03-13 15:30:00 Outpatient ELVIS [facility] [id number] [facility] 2020-03-13 15:30:00 2020-03-13 15:30:00 Outpatient ELVIS [facility] [id number] [facility] 2020-03-13 15:30:00 2020-03-13 15:30:00 Outpatient ELVIS [facility] [id number] [facility]
[2024-10-23] MEDS ORDERED: NA CHLORIDE 0.9% 1,000 ML ONE (12:30)
[2024-10-23] MEDS ORDERED: ONDANSETRON 4 MG/2 ML VIAL ONE (12:30)
[2024-10-23 12:46] LABS: Absolute Lymphocytes (CBC) 2.0 K/uL (0.7-4.9); Hematocrit 46.6 % (36.0-45.0); Hemoglobin 16.1 g/dL (12.0-15.0); MCH 31.7 pg (27.0-35.0); MCHC 34.6 g/dL (32.0-36.0); MCV 91.6 fL (80-100); MPV 7.5 fL (7.6-11.3); Nucleated RBC Absolute Count 0.0 (0-0); Nucleated Red Blood Cells % 0.0 % (0-0); RBC Red Blood Cell Count 5.08 M/uL (3.86-4.86); White Blood Count 9.50 thou/uL (4.3-10.9)
[2024-10-23 13:05] LABS: ALT/SGPT 79.0 U/L (13-56); AST/SGOT 49.0 U/L (15-37); Albumin 3.8 g/dL (3.4-5.0); Albumin/Globulin Ratio 0.8 (1.1-1.8); Alkaline Phosphatase 97.0 U/L (45-117); Anion Gap 6.8 mEq/L (5.0-15.0); BUN Blood Urea Nitrogen 10.0 mg/dL (7-18); Globulin 4.5 g/dL (2.3-3.5); Glucose Level 108.0 mg/dL (74-106); Lipase 31.0 U/L (13-75); Potassium 3.8 mEq/L (3.5-5.1)
[2024-10-23 13:27] LABS: Influenza A Ag Negative; Influenza B Ag Negative; SARS-CoV-2 Antigen Rapid Res Negative (Negative)
--- NOTE | 2024-10-23 14:39 | RAD REPORT ---
EXAM: CT brain without contrast HISTORY: Dizziness Head CT and 2023 CT face COMPARISON: 2021 TECHNIQUE: Multiple contiguous axial images were obtained and a CT of the brain without contrast.. Sagittal and coronal reconstruction performed. Automated exposure control, adjustment of the mA and/or kV according to patient size, and/or iterative reconstruction. Unless otherwise specified, incidental f indings do not require dedicated imaging follow-up FINDINGS: An intracranial bleed is not seen Ventricles are normal caliber No extra-axial fluid collection noted No significant hypodensity within the brain Mild opacification right maxillary sinus present on the 2023 CT face and likely chronic sinusitis IMPRESSION: No acute intracranial abnormality noted. If the patient continues to have symptoms to suggest an acute intracranial abnormality then MRI of th e brain would be recommended.
--- NOTE | 2024-10-23 14:51 | EDPHYS ---
Physician Documentation [facility] Name: Jim Ibrahim Age: 69 yrs Sex: Female : 1955 Arrival Date: 10/23/2024 Time: 11:52 Bed 19 Private MD: ED Physician Pedrito Patel HPI: 10/23 18:16 This 69 yrs old [place] Female presents to ER via Ambulatory with complaints of dr5 Dizziness, General Weakness. 18:16 Onset: The symptoms/episode began/occurred acutely. Patient is a 69-year-old female dr5 with no past medical history coming in with general weakness and decreased appetite for the past 2 days. Patient reports that she has had diarrhea for 2 days. Patient denies chest pain, shortness of breath, fever, abdominal pain.. Historical: - Allergies: 12:05 Aspirin; iw 12:05 Codeine; iw 12:05 PENICILLINS; iw - Home Meds: 12:05 None [Active]; iw - PMHx: 12:05 None; iw - PSHx: 12:05 tubal ligation; Appendectomy; iw - Immunization history:: Adult Immunizations unknown. - Infectious Disease History:: Denies. - Social history:: Smoking status: Patient denies any tobacco usage or history of. ROS: 18:16 Constitutional: as per hpi dr5 Exam: 18:16 Constitutional: This is a well developed, well nourished patient who is awake, alert, dr5 and in no acute distress. Head/Face: Normocephalic, atraumatic. Eyes: Pupils equal round and reactive to light, extra-ocular motions intact. Lids and lashes normal. Conjunctiva and sclera are non-icteric and not injected. Cornea within normal limits. Periorbital areas with no swelling, redness, or edema. Neck: Trachea midline, no thyromegaly or masses palpated, and no cervical lymphadenopathy. Supple, full range of motion without nuchal rigidity, or vertebral point tenderness. No Meningismus. Chest/axilla: Normal chest wall appearance and motion. Nontender with no deformity. No lesions are appreciated. Cardiovascular: Regular rate and rhythm with a normal S1 and S2. Normal PMI, no JVD. No pulse deficits. Respiratory: Lungs have equal breath sounds bilaterally, clear to auscultation. No rales, rhonchi or wheezes noted. No increased work of breathing, no retractions or nasal flaring. Abdomen/GI: Soft, non-tender, non-distended Back: No spinal tenderness. No costovertebral tenderness. Full range of motion. Skin: Warm, dry with normal turgor. Normal color with no rashes, no lesions, and no evidence of cellulitis. MS/ Extremity: Pulses equal, no cyanosis. Neurovascular intact. Full, normal range of motion. Neuro: Awake and alert, GCS 15, oriented to person, place, time, and situation. Cranial nerves II-XII grossly intact. Motor strength 5/5 in all extremities. Sensory grossly intact. Cerebellar exam normal. Normal gait. Vital Signs: 12:02 BP 128 / 060; Pulse 50; Resp 16; Temp 97.9; Pulse Ox 95% on R/A; Weight 54.88 kg; iw Height 4 ft. 11 in. ; Pain 0/10; 12:45 BP 135 / 64; Pulse 43; Resp 15; Pulse Ox 95% on R/A; Pain 0/10; ar8 13:51 BP 146 / 66; Pulse 46; Resp 14; Pulse Ox 99% on R/A; Pain 0/10; ar8 15:00 BP 129 / 75; Pulse 49; Resp 16; Pulse Ox 96% on R/A; iw 12:02 Body Mass Index 24.44 (54.88 kg, 149.86 cm) iw 12:02 Pain Scale: Adult iw 12:45 Pain Scale: Adult ar8 13:51 Pain Scale: Adult ar8 MDM: 12:19 Medical Screening Exam initiated dr5 18:16 Differential diagnosis: head injury, syncope, vertigo, Dehydration, electrolyte dr5 abnormality, vitamin deficiency. Data reviewed: vital signs, nurses notes, lab test result(s), amylase and lipase, CBC, white blood cell count, hemoglobin, hematocrit, platelets, electrolytes, sodium, potassium, chloride, serum bicarbonate, BUN, creatinine, serum glucose, radiologic studies, CT scan. Consideration of Admission/Observation Escalation of care including admission/observation considered. Concern admission patient found to have abnormality on CT scan.. I considered the following discharge prescriptions or medication management in the emergency department I discussed and recommended Over The Counter medications, Medications were administered in the Emergency Department. See MAR. Historians other than the Patient: Spouse/Significant Other: at bedside. Care significantly affected by the following Social Determinants of Health: Poor access to healthcare and/or lack of insurance, Poor access to transportation, Problems related to employment. Counseling: I had a detailed discussion with the patient and/or guardian regarding the historical points, exam findings, and any diagnostic results supporting the discharge/admit diagnosis, the presence of at least one elevated blood pressure reading (>120/80) during this emergency department visit, lab results, radiology results, the need for outpatient follow up, for definitive care, a family practitioner, to return to the emergency department if symptoms worsen or persist or if there are any questions or concerns that arise at home. Medication response: Normal saline, Zofran. Response to treatment: the patient's symptoms have resolved after treatment, the patient's condition has returned to base line. Special discussion: I discussed with the patient/guardian in detail that at this point there is no indication for admission to the hospital. It is understood, however, that if the symptoms persist or worsen the patient needs to return immediately for re-evaluation. Based on the history and exam findings, there is no indication for further emergent testing or inpatient evaluation. I discussed with the patient/guardian the need to see the primary care provider for further evaluation of the symptoms. ED course: Labs and CT scan reportedly given to patient take to primary care doctor. Recommended increase hydration. Will give Zofran to help with nausea and appetite. Recommend patient follow-up primary care doctor for further management and further workup. All questions answered. Strict ER precautions given.. 10/23 12:23 Order name: CBC with Diff; Complete Time: 13:32 dr5 10/23 12:23 Order name: CMP; Complete Time: 13:32 dr5 10/23 12:23 Order name: Lipase; Complete Time: 13:32 dr5 10/23 12:23 Order name: COVID-19 Ag + Flu A+B Ag; Complete Time: 13:32 dr5 10/23 13:59 Order name: CT Head Brain wo Cont; Complete Time: 14:42 dr5 10/23 12:23 Order name: IV Saline Lock; Complete Time: 12:40 dr5 10/23 12:23 Order name: Labs collected and sent; Complete Time: 12:40 dr5 EC:13 Rate is 53 beats/min. Rhythm is regular. QRS [place] is Normal. [place] interval is normal at dr5 142 msec. QRS interval is normal at 68 msec. Clinical impression: Normal ECG and Sinus bradycardia. Administered Medications: 12:45 Drug: Ondansetron IVP 4 mg IVP once; over 2 minutes Route: IVP; Site: right antecubital;ar8 13:51 Follow up: Response: No adverse reaction; Nausea is decreased ar8 12:45 Drug: NS 0.9% IV 1000 ml IV at 1 bolus Per protocol; to be given as a bolus over 60 ar8 minutes Route: IV; Rate: 1 bolus; Site: right antecubital; 14:00 Follow up: IV Status: Completed infusion iw Disposition: 20:03 I was immediately available on-site in the Emergency Department for consultation in the ms3 care of the patient. Disposition Summary: 10/23/24 14:50 Discharge Ordered Notes: Location: Home dr5 Condition: Stable dr5 Diagnosis - Weakness dr5 - Other fatigue dr5 Followup: dr5 - With: Emergency Department - When: As needed - Reason: Worsening of condition Followup: dr5 - With: Private Physician - When: 1 - 2 days - Reason: Recheck today's complaints, Continuance of care, Re-evaluation by your physician Discharge Instructions: - Discharge Summary Sheet dr5 - Fatigue dr5 Forms: - Medication Reconciliation Form dr5 - Patient Portal Instructions dr5 - Leadership Thank You Letter dr5 Prescriptions: - Zofran 4 mg Oral Tablet - take 1 tablet ORAL route every 12 hours As needed; 20 tablet; Refills: 0, dr5 Product Selection Permitted Signatures: Dispatcher [employer] Erica Wright RN RN iw Pedrito Patel DO DO ms3 Johan Pugh, SERVICE LINE LAYER-C SERVICE LINE LAYER-Cdr5 Javy Fernando RN RN ar8
--- NOTE | 2024-10-23 14:51 | ER ---
Nurse's Notes [facility] [place] Name: Jim Ibrahim Age: 69 yrs Sex: Female : 1955 Arrival Date: 10/23/2024 Time: 11:52 Bed 19 Private MD: Diagnosis: Weakness;Other fatigue Presentation: 10/23 12:02 Chief complaint: Patient states: has not been feeling well for 2 weeks, has nausea, no iw vomiting, had diarrhea twice today , no appetite, no fever or chills, fell weak and dizzy. Coronavirus screen: Client presents with at least one sign or symptom that may indicate coronavirus-19. Ebola Screen: No symptoms or risks identified at this time. Initial Sepsis Screen: Does the patient meet any 2 criteria? No. Patient's initial sepsis screen is negative. Does the patient have a suspected source of infection? No. Patient's initial sepsis screen is negative. Risk Assessment: Do you want to hurt yourself or someone else? Patient reports no desire to harm self or others. 12:02 Method Of Arrival: Ambulatory iw 12:02 Acuity: MARY ANN 3 iw 12:06 Onset of symptoms was October 09, 2024. iw 12:06 Acuity: MARY ANN 2 iw Historical: - Allergies: 12:05 Aspirin; iw 12:05 Codeine; iw 12:05 PENICILLINS; iw - Home Meds: 12:05 None [Active]; iw - PMHx: 12:05 None; iw - PSHx: 12:05 tubal ligation; Appendectomy; iw - Immunization history:: Adult Immunizations unknown. - Infectious Disease History:: Denies. - Social history:: Smoking status: Patient denies any tobacco usage or history of. Screenin:45 [facility] ED Fall Risk Assessment (Adult) History of falling in the last 3 months, ar8 including since admission No falls in past 3 months (0 pts) Confusion or Disorientation No (0 pts) Intoxicated or Sedated No (0 pts) Impaired Gait Yes (1 pt) Mobility Assist Device Used No (0 pt) Altered Elimination No (0 pt) Score/Fall Risk Level 0 - 2 = Low Risk Oriented to surroundings, Maintained a safe environment. Abuse screen: Denies threats or abuse. Nutritional screening: No deficits noted. Tuberculosis screening: No symptoms or risk factors identified. Assessment: 12:45 General: Appears in no apparent distress. Behavior is calm, cooperative, appropriate ar8 for age. Pain: Denies pain. Neuro: Level of Consciousness is awake, alert, obeys commands, Oriented to person, place, time, situation, Farm Implement Engine Mechanic are equal bilaterally Moves all extremities. Gait is unsteady, due to dizziness. Reports dizziness, since 2-3 days. Cardiovascular: Rhythm is sinus bradycardia. Respiratory: No deficits noted. Airway is patent Respiratory effort is even, unlabored, Respiratory pattern is regular, symmetrical. GI: Reports nausea. 13:51 Reassessment: Patient and/or family updated on plan of care and expected duration. Pain ar8 level reassessed. Patient is alert, oriented x 3, equal unlabored respirations, skin warm/dry/pink. patient states that she is still feeling weak at this time. Vital Signs: 12:02 BP 128 / 060; Pulse 50; Resp 16; Temp 97.9; Pulse Ox 95% on R/A; Weight 54.88 kg; iw Height 4 ft. 11 in. ; Pain 0/10; 12:45 BP 135 / 64; Pulse 43; Resp 15; Pulse Ox 95% on R/A; Pain 0/10; ar8 13:51 BP 146 / 66; Pulse 46; Resp 14; Pulse Ox 99% on R/A; Pain 0/10; ar8 15:00 BP 129 / 75; Pulse 49; Resp 16; Pulse Ox 96% on R/A; iw 12:02 Body Mass Index 24.44 (54.88 kg, 149.86 cm) iw 12:02 Pain Scale: Adult iw 12:45 Pain Scale: Adult ar8 13:51 Pain Scale: Adult ar8 ED Course: 11:53 Patient arrived in ED. mr 12:05 Triage completed. iw 12:06 Arm band placed on. iw 12:19 Johan Pugh FNP-C is PHCP. dr5 12:19 Pedrito Patel DO is Attending Physician. dr5 12:35 Javy Fernando, RN is Primary Nurse. ar8 12:40 COVID-19 Ag + Flu A+B Ag Sent. bc6 12:40 CBC with Diff Sent. bc6 12:40 CMP Sent. bc6 12:40 Lipase Sent. bc6 12:40 Initial lab(s) drawn, by pa, sent to lab. Inserted saline lock: 20 gauge in right bc6 antecubital area, using aseptic technique. Blood collected. Flushed with 10 mL NS. 12:45 Bed in low position. Call light in reach. Side rails up X2. Provided Education on: plan ar8 of care, diagnostics, and estimated wait time. 12:45 No provider procedures requiring assistance completed. ar8 14:21 CT Head Brain wo Cont In Process Unspecified. EDMS 15:13 IV discontinued, intact, bleeding controlled, No redness/swelling at site. Pressure iw dressing applied. Administered Medications: 12:45 Drug: Ondansetron IVP 4 mg IVP once; over 2 minutes Route: IVP; Site: right antecubital;ar8 13:51 Follow up: Response: No adverse reaction; Nausea is decreased ar8 12:45 Drug: NS 0.9% IV 1000 ml IV at 1 bolus Per protocol; to be given as a bolus over 60 ar8 minutes Route: IV; Rate: 1 bolus; Site: right antecubital; 14:00 Follow up: IV Status: Completed infusion iw Medication: 12:45 VIS not applicable for this client. ar8 Outcome: 14:50 Discharge ordered by MD. dr5 15:13 Discharged to home via wheelchair, with family, iw 15:13 Condition: good 15:13 Discharge instructions given to patient, family, Instructed on discharge instructions, follow up and referral plans. medication usage, Demonstrated understanding of instructions, follow-up care, medications, Prescriptions given X 1, 15:14 Patient left the ED. iw Signatures: Dispatcher [employer] EDCT Elizabeth Gonzales, Reg Reg mr Erica Curry, RN RN iw Sonja Marrero bc6 Johan Pugh, PARTS WASHER-C PARTS WASHER-Cdr5 Javy Fernando, TRAE RN ar8 Corrections: (The following items were deleted from the chart) 12:05 12:02 BP 128 / 060; Pulse 50bpm; Resp 16bpm; Pulse Ox 95% RA; Temp 97.9F; 54.88 kg; iw iw
[2024-10-23 20:25] VITALS: TEMP 97.9
[2024-10-23 20:39] VITALS: BP 129/75; O2SAT 96
== END 2024-10-23 15:14 | disposition home or self-care (01) ==
LOC: ER 11:52
DX: R53.1 Weakness (principal); R53.83 Other fatigue; Z11.52 Encounter for screening for COVID-19
CPT/HCPCS: 96361; 85025; 36415; 83690; 80053; 70450; 96374; 99284; 87428; J2405; J7030

== ENCOUNTER 2024-10-23 23:01 | Emergency (ER) | payer OTHER ==
--- OUTSIDE RECORDS SUMMARY | 2024-10-23 23:05 | XMS REPORT | Continuity of Care Document ---
Author Name Unknown Address [address] [place] [address] [facility] Address [address] [place] [address] Care Team Providers Care Employee Benefits Director Name Role Phone Doug Samuel Attending Clinician ELVIS Redman Attending Clinician Unavailable Doug Samuel Admitting Clinician Unavailable Physician, No Primary or Family Admitting Clinic antionette Unavailable Payers Payer Name Policy Type Policy Number Effective Date Expirati on Date Source MEDICARE PART A \T\ B [id number] 2019 00:00:00 [employer] INDEMNITY [id number] 2019 00:00:00 Allergies, Adverse Reactions, Alerts Allergy Name Allergy Type Status Severity Reaction(s) Onset Date Inactive Date Treating Clinician Comments Source NO KNOWN ALLERGIE S Drug Class Active [facility] Encounters Start Date/Time End Date/Time Encounter Type Admission Type Attending Clinicians Care Facility Care Department Encounter ID Source 2021-07-16 12:00:00 2021-07-16 12:00:00 Outpatient Doug Paredes [id number] [facility] 2020-06-03 17:05:00 2020-06-03 17:05:00 Outpatient Doug Paredes [id number] [facility] 2020-04-10 14:50:00 2020-04-10 14:50:00 Outpatient [facility] [id number] [facility] 2020-04-10 14:50:00 2020-04-10 14:50:00 Outpatient [facility] [id number] [facility] 2020-03-13 15:30:00 2020-03-13 15:30:00 Outpatient [facility] [id number] [facility] 2020-03-13 15:30:00 2020-03-13 15:30:00 Outpatient [facility] [id number] [facility] 2020-03-13 15:30:00 2020-03-13 15:30:00 Outpatient [facility] [id number] [facility] 2020-03-13 15:30:00 2020-03-13 15:30:00 Outpatient [facility] [id number] [facility]
[2024-10-23] MEDS ORDERED: NA CHLORIDE 0.9% 1,000 ML ONE (23:30)
[2024-10-23] MEDS ORDERED: NA CHLORIDE 0.9% 500 ML ONE (23:30)
[2024-10-23 23:41] LABS: Absolute Lymphocytes (CBC) 2.7 K/uL (0.7-4.9); Hematocrit 42.3 % (36.0-45.0); Hemoglobin 14.9 g/dL (12.0-15.0); MCH 31.7 pg (27.0-35.0); MCHC 35.3 g/dL (32.0-36.0); MCV 89.9 fL (80-100); MPV 7.3 fL (7.6-11.3); Nucleated RBC Absolute Count 0.0 (0-0); Nucleated Red Blood Cells % 0.1 % (0-0); RBC Red Blood Cell Count 4.70 M/uL (3.86-4.86); White Blood Count 11.30 thou/uL (4.3-10.9)
[2024-10-23 23:46] LABS: PT Prothrombin Time 12.3 SECONDS (10-13.0); Protime INR 1.09
[2024-10-24 00:05] LABS: ALT/SGPT 70.0 U/L (13-56); AST/SGOT 51.0 U/L (15-37); Albumin 3.6 g/dL (3.4-5.0); Albumin/Globulin Ratio 1.0 (1.1-1.8); Alkaline Phosphatase 87.0 U/L (45-117); Anion Gap 9.9 mEq/L (5.0-15.0); BUN Blood Urea Nitrogen 12.0 mg/dL (7-18); Bilirubin Indirect, Calculated 0.6 mg/dL (0.2-0.8); Globulin 3.7 g/dL (2.3-3.5); Glucose Level 111.0 mg/dL (74-106); Lipase 38.0 U/L (13-75); Magnesium 2.2 mg/dL (1.6-2.4); NT PRO-BNP 64.0 pg/mL (<125); Potassium 3.9 mEq/L (3.5-5.1); Thyroid Stimulating Hormone 2.94 uIU/mL (0.358-3.740); Troponin High Sensitivity 6.4 pg/mL (<58.9)
--- NOTE | 2024-10-24 01:31 | RAD REPORT ---
EXAM DESCRIPTION: Chest Single View CLINICAL HISTORY: CHEST PAIN COMPARISON: None TECHNIQUE: Single AP view of the chest. FINDINGS: Lung volumes adequate. Cardiac silhouette is normal in size. No pneumothorax. No large pleural effusion. No focal consolidation. No acute bony finding. IMPRESSION: No evidence of acute cardiopulmonary disease. Electronically signed by: Santosh Goyal MD 10/24/2024 01:22 AM CDT RP TYG Due to temporary technical issues with the PACS/[employer] reporting system, reports are being netta d by the in-house radiologist without review as a courtesy to ensure prompt reporting the interpreting radiologist is fully responsible for the content of the report. Transcribed Date/Time: 10/24/2024 1:30 AM
[2024-10-24] MEDS ORDERED: KETOROLAC 30 MG/ML INJ ONE (01:45)
--- NOTE | 2024-10-24 02:56 | RAD REPORT ---
EXAM: CT Chest, Abdomen and Pelvis Without Intravenous Contrast CLINICAL HISTORY: The patient is 69 years old and is Female; upper abdominal pain TECHNIQUE: Axial computed tomography images of the chest, abdomen and pelvis without intravenous contrast. S agittal and coronal reformatted images were created and reviewed. This CT exam was performed using one or more of the following dose reduction techniques: automated exposure control, adjustmen t of the mA and/or kV according to patient size, and/or use of iterative reconstruction technique. COMPARISON: CT August 12, 2018 FINDINGS: CHEST: LUNGS AND PLEURAL SPACES: Scarring of the lung bases is present. A 0.5 cm right upper lobe pulmon marin nodule is present. The lungs are otherwise well-inflated and clear. There is no effusion or pneumothorax. The tracheobronchial tree is patent. HEART: No cardiomegaly. No pericardial effusion. ABDOMEN: LIVER: The liver is enlarged and fatty. Geographic areas of fatty infiltration throughout the sherita er is noted. Calcification along the right hepatic lobe at site of prior low attenuating lesion is noted. GALLBLADDER AND BILE DUCTS: Surgical clips are present in the right upper quadrant, consistent wi th previous cholecystectomy. PANCREAS: Unremarkable. No ductal dilation. SPLEEN: Unremarkable. ADRENALS: Unremarkable. No mass. KIDNEYS AND URETERS: Tiny exophytic left renal lesion is present which is too small to accurately characterize. An exophytic right renal cyst is present. No follow-up imaging is recommended. There is no hydronephrosis or hydroureter of either kidney. No obstructing renal or ureteral calculus is seen. STOMACH AND BOWEL: The stomach is decompressed. The small bowel is relatively normal in caliber. A moderate amount of stool is present throughout colon. There is no mucosal thickening or evidence of obstruction. PELVIS: APPENDIX: The appendix is surgically absent. BLADDER: The bladder is well distended. No stones. REPRODUCTIVE: A large 6.4 cm left ovarian cyst is present. The uterus and right ovary are unremar kable. CHEST, ABDOMEN and PELVIS: INTRAPERITONEAL SPACE: Unremarkable. No significant fluid collection. No free air. BONES/JOINTS: See above. SOFT TISSUES: The soft tissues are normal. VASCULATURE: Unremarkable. No aortic aneurysm. LYMPH NODES: Unremarkable. No enlarged lymph nodes. IMPRESSION: 1. Right upper lobe pulmonary nodule. Right solid pulmonary nodule within the upper lobe measuring 5 mm. Per Fleischner Society Guidelines, if patient is low risk for malignancy, no routine follow-up imaging is recommended. If patient is high risk for malignancy, a non-contrast Chest CT at 12 months is optional. If performed and the nodule is stable at 12 months, no further follow-up is recommended. These guidelines do not apply to immunocompromised patients and patients with cancer. Fo llow up in patients with significant comorbidities as clinically warranted. For lung cancer screening, adhere to Lung-RADS guidelines. Reference: Radiology. 2017; 284(1):228-43. 2. Large left ovarian cyst. Left ovarian simple-appearing cyst measuring 6.4 cm, not adequately patti racterized. Recommend prompt follow-up with pelvic ultrasound. Reference: JACR 2019;17(2):248-254 3. Chronic findings as detailed above. Electronically signed by: Barbara Bates MD 10/24/2024 02:48 AM CDT Due to temporary technical issues with the PACS/CallmyName reporting system, reports are being netta d by the in-house radiologist without review as a courtesy to ensure prompt reporting the interpreting radiologist is fully responsible for the content of the report. Transcribed Date/Time: 10/24/2024 2:55 AM
[2024-10-24] MEDS ORDERED: PANTOPRAZOLE 40 MG INJ ONE (03:26)
[2024-10-24] MEDS ORDERED: FAMOTIDINE 20 MG/2 ML VIAL IV ONE (03:26)
[2024-10-24 04:56] LABS: Sqamous Epithelial <5 /HPF (None Seen); Urine Micro Reflex YN NO BILL MICROSCOPIC
--- NOTE | 2024-10-24 05:04 | ER ---
Nurse's Notes [facility] Name: Jim Ibrahim Age: 69 yrs Sex: Female : 1955 Arrival Date: 10/23/2024 Time: 23:01 Bed 6 Private MD: Diagnosis: Acute moderate gastritis,, Upper abdominal pain with nausea Presentation: 10/23 23:13 Chief complaint: Patient states: PT STATES SHE WAS SEEN TODAY HERE IN THE ER. PT br2 RETURNS C/O CP THAT RADIATES TO MID-BACK, . ABDOMINAL PAIN, PELVIC PAIN N/V/D. Coronavirus screen: Client denies travel out of the [place] in the last 14 days. Ebola Screen: Patient denies exposure to infectious person. Initial Sepsis Screen: Does the patient meet any 2 criteria? No. Patient's initial sepsis screen is negative. Does the patient have a suspected source of infection? No. Patient's initial sepsis screen is negative. Risk Assessment: Do you want to hurt yourself or someone else? Patient reports no desire to harm self or others. Onset of symptoms is unknown. 23:13 Method Of Arrival: Ambulatory br2 23:13 Acuity: MARY ANN 3 br2 Triage Assessment: 23:16 General: Appears uncomfortable, Behavior is cooperative, anxious. Pain: Complains of br2 pain in chest, abdomen and pelvis Pain radiates to thoracic area and lumbar area Pain currently is 10 out of 10 on a pain scale. Historical: - Allergies: 23:16 Aspirin; br2 23:16 Codeine; br2 23:16 PENICILLINS; br2 10/24 00:11 IODINATED CONTRAST MEDIA; bm8 - PSHx: 10/23 23:16 Appendectomy; tubal ligation; Cholecystectomy; br2 - Immunization history:: Adult Immunizations not up to date. - Infectious Disease History:: Denies. - Social history:: Smoking status: Reported history of juuling and/or vaping. Patient/guardian denies using alcohol, street drugs. Screenin:[facility] ED Fall Risk Assessment (Adult) History of falling in the last 3 months, bm8 including since admission No falls in past 3 months (0 pts) Confusion or Disorientation No (0 pts) Intoxicated or Sedated No (0 pts) Impaired Gait No (0 pts) Mobility Assist Device Used No (0 pt) Altered Elimination No (0 pt) Score/Fall Risk Level 0 - 2 = Low Risk Oriented to surroundings, Maintained a safe environment, Educated pt \T\ family on fall prevention, incl call for assistance when getting out of bed, Assessed \T\ reinforced patient's understanding of fall precautions, Hourly rounding (assess needs \T\ fall precautionary measures) done, Used ambulatory aids as needed (educated on \T\ assisted with), Used gait belt as appropriate. Abuse screen: Denies threats or abuse. Nutritional screening: No deficits noted. Tuberculosis screening: No symptoms or risk factors identified. Assessment: 10/24 01:30 Reassessment: Patient appears in no apparent distress at this time. Patient and/or bm8 family updated on plan of care and expected duration. Pain level reassessed. Patient is alert, oriented x 3, equal unlabored respirations, skin warm/dry/pink. Patient states feeling better. Pain: Pain currently is 4 out of 10 on a pain scale. Pain: Pain began 2-3 days ago. Neuro: No deficits noted. Level of Consciousness is awake, alert, obeys commands, Oriented to person, place, time, situation, Appropriate for age. Cardiovascular: Denies chest pain, Heart tones S1 S2 present Capillary refill < 3 seconds in bilateral fingers Patient's skin is warm and dry. Respiratory: Airway is patent Respiratory effort is even, unlabored, Respiratory pattern is regular, symmetrical, Breath sounds are clear bilaterally. GI: Reports pain that come in waves currently pain is 4 of 10. 02:50 Reassessment: Patient appears in no apparent distress at this time. Patient and/or bm8 family updated on plan of care and expected duration. Pain level reassessed. Patient is alert, oriented x 3, equal unlabored respirations, skin warm/dry/pink. pt is resting with eyes closed breathing is even unlabored with symmetrical rise and fall of chest .Daughter at bedside. Patient awaiting CT results Patient denies pain at this time. Patient states feeling better. Patient states symptoms have improved. 03:58 Reassessment: Patient appears in no apparent distress at this time. Patient and/or bm8 family updated on plan of care and expected duration. Pain level reassessed. Patient is alert, oriented x 3, equal unlabored respirations, skin warm/dry/pink. Patient denies pain at this time. Patient states feeling better. Patient states symptoms have improved. Vital Signs: 10/23 23:13 BP 130 / 70; Pulse 51; Resp 18; Temp 97.8; Pulse Ox 99% ; Weight 54.88 kg; Height 4 ft. br2 11 in. ; Pain 10/10; 10/24 01:30 BP 136 / 70; Pulse 55; Resp 14; Temp 97.8; Pulse Ox 98% ; Pain 4/10; bm8 02:50 BP 124 / 66; Pulse 51; Resp 14; Temp 97.8; Pulse Ox 95% on R/A; Pain 0/10; bm8 03:58 BP 124 / 69; Pulse 54; Resp 16; Temp 97.8; Pulse Ox 96% ; Pain 0/10; bm8 04:47 BP 124 / 64; Pulse 51; Resp 18; Pulse Ox 99% on R/A; Pain 0/10; tb4 10/23 23:13 Body Mass Index 24.44 (54.88 kg, 149.86 cm) br2 10/23 23:13 Pain Scale: Adult br2 10/24 01:30 Pain Scale: Adult bm8 02:50 Pain Scale: Adult bm8 03:58 Pain Scale: Adult bm8 04:47 Pain Scale: Adult tb4 [place] Coma Score: 10/23 23:21 Eye Response: spontaneous(4). Motor Response: obeys commands(6). Verbal Response: bm8 oriented(5). Total: 15. 10/24 02:50 Eye Response: to voice(3). Motor Response: obeys commands(6). Verbal Response: bm8 oriented(5). Total: 14. 03:58 Eye Response: spontaneous(4). Motor Response: obeys commands(6). Verbal Response: bm8 oriented(5). Total: 15. 04:13 Eye Response: spontaneous(4). Motor Response: obeys commands(6). Verbal Response: sp4 oriented(5). Total: 15. ED Course: 10/23 23:02 Patient arrived in ED. jj6 23:10 Paxton Hdz MD is Attending Physician. sp4 23:16 Triage completed. br2 23:16 EKG done, by ED staff, reviewed by Paxton Hdz MD. rk3 23:16 Arm band placed on right wrist. br2 23:21 Heath Castañeda, RN is Primary Nurse. bm8 23:21 No provider procedures requiring assistance completed. Initial lab(s) drawn, by abiodun flaherty sent to lab. Inserted saline lock: 20 gauge in right wrist, using aseptic technique. Blood collected. Flushed with 10 mL NS. Patient maintains SpO2 saturation greater than 95% on room air. 23:21 Patient has correct armband on for positive identification. Placed in gown. Bed in low bm8 position. Call light in reach. Side rails up X2. Adult w/ patient. Client placed on continuous cardiac and pulse oximetry monitoring. NIBP monitoring applied. agriscience technology instructor on. Pulse ox on. NIBP on. Door closed. Noise minimized. Warm blanket given. Pillow given. Verbal reassurance given. Head of bed elevated. 23:51 CT Chest Abdomen Pelvis W/O Contrast In Process Unspecified. EDMS 10/24 00:06 XRAY Chest (1 view) In Process Unspecified. EDMS 01:30 Patient admitted, IV remains in place. bm8 01:30 Provided Education on: need for admission. bm8 05:02 Gordon Fonseca MD is Referral Physician. sp4 Administered Medications: 10/23 23:33 Drug: NS 0.9% IV 1000 ml IV at 125 ml/hr once; to be given at 125 ml / hour Route: IV; bm8 Rate: 125 ml/hr; Site: right wrist; 10/24 05:26 Follow up: IV Status: Completed infusion kd3 10/23 23:34 Drug: NS 0.9% IV 500 ml 500 ml IV at 1 bolus once; to be given as a bolus over 30 bm8 minutes Volume: 500 ml; Route: IV; Rate: 1 bolus; Site: right wrist; 10/24 01:32 Follow up: Response: No adverse reaction; IV Status: Completed infusion bm8 01:55 Drug: Ketorolac IVP 15 mg IVP once Route: IVP; Site: right wrist; bm8 02:56 Follow up: Response: No adverse reaction bm8 01:55 Drug: Droperidol IVP 1.25 mg IVP once Route: IVP; Site: right wrist; bm8 02:56 Follow up: Response: No adverse reaction bm8 03:34 Drug: Pantoprazole IVP 40 mg IVP once Route: IVP; Site: right wrist; tb4 03:59 Follow up: Response: No adverse reaction bm8 03:34 Drug: Famotidine IVP 20 mg IVP once; dilute with 10 mL 0.9% NaCl; give over 2 minutes tb4 Route: IVP; Site: right wrist; 03:59 Follow up: Response: No adverse reaction bm8 Medication: 10/23 23:21 VIS not applicable for this client. bm8 Outcome: 10/24 05:03 Discharge ordered by . brenda 05:25 Discharged to home with family, kd3 05:25 Condition: stable 05:25 Discharge instructions given to patient, family, Instructed on discharge instructions, follow up and referral plans. medication usage, Demonstrated understanding of instructions, follow-up care, medications, Prescriptions given X 4, 05:26 Patient left the ED. kd3 Signatures: Dispatcher [employer] EDMS Tamia Rod jj6 Mariaa Tobin RN RN kd3 Paxton Hdz MD MD sp4 Heath Castañeda, RN RN bm8 Chantelle Holloway, RN RN br2 Karin Hyman rk3 Kaci Potter, RN RN tb4
--- NOTE | 2024-10-24 05:04 | EDPHYS ---
Physician Documentation [facility] Name: Jim Ibrahim Age: 69 yrs Sex: Female : 1955 Arrival Date: 10/23/2024 Time: 23:01 Bed 6 Private MD: ED Physician Paxton Hdz HPI: 10/23 23:10 This 69 yrs old [place] Female presents to ER via Unassigned with complaints of Chest sp4 Pain. Historical: - Allergies: 23:16 Aspirin; br2 23:16 Codeine; br2 23:16 PENICILLINS; br2 10/24 00:11 IODINATED CONTRAST MEDIA; bm8 - PSHx: 10/23 23:16 Appendectomy; tubal ligation; Cholecystectomy; br2 - Immunization history:: Adult Immunizations not up to date. - Infectious Disease History:: Denies. - Social history:: Smoking status: Reported history of juuling and/or vaping. Patient/guardian denies using alcohol, street drugs. ROS: 10/24 04:14 Constitutional: Negative for fever, chills, and weight loss, sp4 All other systems are negative, Exam: 04:13 Constitutional: This is a well developed, well nourished patient who is awake, alert, sp4 and in no acute distress. Head/Face: Normocephalic, atraumatic. Eyes: Pupils equal round and reactive to light, extra-ocular motions intact. Lids and lashes normal. Conjunctiva and sclera are not injected. Cornea within normal limits. Periorbital areas with no swelling, redness, or edema. ENT: Nares patent. No nasal discharge, no septal abnormalities noted. Tympanic membranes are normal and external auditory canals are clear. Oropharynx with no redness, swelling, or masses, exudates, or evidence of obstruction, uvula midline. Mucous membranes moist. Neck: Trachea midline, no thyromegaly or masses palpated, and no cervical lymphadenopathy. Supple, full range of motion without nuchal rigidity, or vertebral point tenderness. Chest/axilla: Normal chest wall appearance and motion. Nontender with no deformity. No lesions are appreciated. Cardiovascular: Regular rate and rhythm with a normal S1 and S2. No gallops, murmurs, or rubs. No pulse deficits. Respiratory: Lungs have equal breath sounds bilaterally, clear to auscultation and percussion. No rales, rhonchi or wheezes noted. No increased work of breathing, no retractions or nasal flaring. Abdomen/GI: Soft, with normal bowel sounds. No distension or tympany. No guarding or rebound. No evidence of tenderness throughout. Back: No spinal tenderness. No costovertebral tenderness. Skin: Warm, dry with normal turgor. Normal color with no rashes, no lesions, and no evidence of cellulitis. MS/ Extremity: Pulses equal, no cyanosis. Neurovascular intact. Full, normal range of motion. Neuro: Awake and alert, GCS 15, oriented to person, place, time, and situation. Cranial nerves II-XII grossly intact. Motor strength 5/5 in all extremities. Sensory grossly intact. Psych: Awake, alert, with orientation to person, place and time. Behavior, mood, and affect are within normal limits 04:15 ECG was reviewed by the Attending Physician. EKG at 2312 marked sinus bradycardia at sp4 the rate of 49 otherwise unremarkable. Vital Signs: 10/23 23:13 BP 130 / 70; Pulse 51; Resp 18; Temp 97.8; Pulse Ox 99% ; Weight 54.88 kg; Height 4 ft. br2 11 in. ; Pain 10/10; 10/24 01:30 BP 136 / 70; Pulse 55; Resp 14; Temp 97.8; Pulse Ox 98% ; Pain 4/10; bm8 02:50 BP 124 / 66; Pulse 51; Resp 14; Temp 97.8; Pulse Ox 95% on R/A; Pain 0/10; bm8 03:58 BP 124 / 69; Pulse 54; Resp 16; Temp 97.8; Pulse Ox 96% ; Pain 0/10; bm8 04:47 BP 124 / 64; Pulse 51; Resp 18; Pulse Ox 99% on R/A; Pain 0/10; tb4 10/23 23:13 Body Mass Index 24.44 (54.88 kg, 149.86 cm) br2 10/23 23:13 Pain Scale: Adult br2 10/24 01:30 Pain Scale: Adult bm8 02:50 Pain Scale: Adult bm8 03:58 Pain Scale: Adult bm8 04:47 Pain Scale: Adult tb4 Elizabeth Coma Score: 10/23 23:21 Eye Response: spontaneous(4). Motor Response: obeys commands(6). Verbal Response: bm8 oriented(5). Total: 15. 10/24 02:50 Eye Response: to voice(3). Motor Response: obeys commands(6). Verbal Response: bm8 oriented(5). Total: 14. 03:58 Eye Response: spontaneous(4). Motor Response: obeys commands(6). Verbal Response: bm8 oriented(5). Total: 15. 04:13 Eye Response: spontaneous(4). Motor Response: obeys commands(6). Verbal Response: sp4 oriented(5). Total: 15. MDM: 10/23 23:11 Medical Screening Exam initiated sp4 10/24 02:05 ED course: EXAM: CT brain without contrast HISTORY: Dizziness Head CT and 2023 CT face sp4 COMPARISON: 2021 TECHNIQUE: Multiple contiguous axial images were obtained and a CT of the brain without contrast.. Sagittal and coronal reconstruction performed. Automated exposure control, adjustment of the mA and/or kV according to patient size, and/or iterative reconstruction. Unless otherwise specified, incidental findings do not require dedicated imaging follow-up FINDINGS: An intracranial bleed is not seen Ventricles are normal caliber No extra-axial fluid collection noted No significant hypodensity within the brain Mild opacification right maxillary sinus present on the 2023 CT face and likely chronic sinusitis IMPRESSION: No acute intracranial abnormality noted. If the patient continues to have symptoms to suggest an acute intracranial abnormality then MRI of the brain would be recommended. Reported By: Angel Luis Espinoza . ED course: EXAM DESCRIPTION: Chest Single View CLINICAL HISTORY: CHEST PAIN COMPARISON: None TECHNIQUE: Single AP view of the chest. FINDINGS: Lung volumes adequate. Cardiac silhouette is normal in size. No pneumothorax. No large pleural effusion. No focal consolidation. No acute bony finding. IMPRESSION: No evidence of acute cardiopulmonary disease. . 03:04 ED course: EXAM: CT Chest, Abdomen and Pelvis Without Intravenous Contrast CLINICAL sp4 HISTORY: The patient is 69 years old and is Female; upper abdominal pain TECHNIQUE: Axial computed tomography images of the chest, abdomen and pelvis without intravenous contrast. Sagittal and coronal reformatted images were created and reviewed. This CT exam was performed using one or more of the following dose reduction techniques: automated exposure control, adjustment of the mA and/or kV according to patient size, and/or use of iterative reconstruction technique. COMPARISON: CT August 12, 2018 FINDINGS: CHEST: LUNGS AND PLEURAL SPACES: Scarring of the lung bases is present. A 0.5 cm right upper lobe pulmonary nodule is present. The lungs are otherwise well-inflated and clear. There is no effusion or pneumothorax. The tracheobronchial tree is patent. HEART: No cardiomegaly. No pericardial effusion. ABDOMEN: LIVER: The liver is enlarged and fatty. Geographic areas of fatty infiltration throughout the liver is noted. Calcification along the right hepatic lobe at site of prior low attenuating lesion is noted. GALLBLADDER AND BILE DUCTS: Surgical clips are present in the right upper quadrant, consistent with previous cholecystectomy. PANCREAS: Unremarkable. No ductal dilation. SPLEEN: Unremarkable. ADRENALS: Unremarkable. No mass. KIDNEYS AND URETERS: Tiny exophytic left renal lesion is present which is too small to accurately characterize. An exophytic right renal cyst is present. No follow-up imaging is recommended. There is no hydronephrosis or hydroureter of either kidney. No obstructing renal or ureteral calculus is seen. STOMACH AND BOWEL: The stomach is decompressed. The small bowel is relatively normal in caliber. A moderate amount of stool is present throughout colon. There is no mucosal thickening or evidence of obstruction. PELVIS: APPENDIX: The appendix is surgically absent. BLADDER: The bladder is well distended. No stones. REPRODUCTIVE: A large 6.4 cm left ovarian cyst is present. The uterus and right ovary are unremarkable. CHEST, ABDOMEN and PELVIS: INTRAPERITONEAL SPACE: Unremarkable. No significant fluid collection. No free air. BONES/JOINTS: See above. SOFT TISSUES: The soft tissues are normal. VASCULATURE: Unremarkable. No aortic aneurysm. LYMPH NODES: Unremarkable. No enlarged lymph nodes. IMPRESSION: 1. Right upper lobe pulmonary nodule. Right solid pulmonary nodule within the upper lobe measuring 5 mm. Per Fleischner Society Guidelines, if patient is low risk for malignancy, no routine follow-up imaging is recommended. If patient is high risk for malignancy, a non-contrast Chest CT at 12 months is optional. If performed and the nodule is stable at 12 months, no further follow-up is recommended. These guidelines do not apply to immunocompromised patients and patients with cancer. Follow up in patients with significant comorbidities as clinically warranted. 2. Large left ovarian cyst. Left ovarian simple-appearing cyst measuring 6.4 cm, not adequately characterized. Recommend prompt follow-up with pelvic ultrasound. Reference: JACR 2019;17(4):248254 3. Chronic findings as detailed above. Electronically signed by: Barbara Bates MD 10/24/2024 02:48. 03:05 HEART Score: History: Slightly Suspicious (0), ECG: Normal (0), Age: > or = 65 years sp4 (2), Risk Factors: 1 or 2 risk factors (1), Troponin: < or = 1 x Normal Limit (0), Total Score = 3. 04:13 Differential diagnosis: acute pericarditis, anxiety, chest wall pain, cholecystitis, sp4 esophagitis, gastritis. Data reviewed: vital signs, nurses notes, EMS record, EKG, radiologic studies, CT scan, plain films. 10/23 23:11 Order name: Basic Metabolic Panel; Complete Time: 00:50 [facility] 10/23 23:11 Order name: CBC with Diff; Complete Time: 00:50 [facility] 10/23 23:11 Order name: LFT's; Complete Time: 00:50 [facility] 10/23 23:11 Order name: Magnesium; Complete Time: 00:50 [facility] 10/23 23:11 Order name: NT PRO-BNP; Complete Time: 00:50 [facility] 10/23 23:11 Order name: PT-INR; Complete Time: 00:50 [facility] 10/23 23:11 Order name: Troponin HS; Complete Time: 00:50 [facility] 10/23 23:14 Order name: Cortisol; Complete Time: 00:50 [facility] 10/23 23:39 Order name: Creatine Phosphokinase; Complete Time: 00:50 [facility] 10/23 23:39 Order name: T4 Free; Complete Time: 00:50 [facility] 10/23 23:39 Order name: Lipase; Complete Time: 00:50 [facility] 10/23 23:39 Order name: Thyroid Stimulating Hormone; Complete Time: 00:50 [facility] 10/24 03:23 Order name: UA W/ Microscopic; Complete Time: 04:59 [facility] 10/23 23:11 Order name: XRAY Chest (1 view) [facility] 10/23 23:24 Order name: CT Chest Abdomen Pelvis W/O Contrast [facility] 10/23 23:11 Order name: EKG; Complete Time: 23:12 [facility] 10/23 23:11 Order name: Cardiac monitoring; Complete Time: 23:15 sp4 10/23 23:11 Order name: EKG - Nurse/Tech; Complete Time: 23:15 sp4 10/23 23:11 Order name: IV Saline Lock; Complete Time: 23:21 sp4 10/23 23:11 Order name: Labs collected and sent; Complete Time: 23:21 sp4 10/23 23:11 Order name: O2 Per Protocol; Complete Time: 23:15 sp4 10/23 23:11 Order name: O2 Sat Monitoring; Complete Time: 23:15 sp4 EC/18 23:12 Rate is 49 beats/min. Rhythm is regular, Sinus bradycardia. QRS [place] is Normal. ND sp4 interval is normal. QRS interval is normal. QT interval is normal. No Q waves. T waves are Normal. No ST changes noted. Clinical impression: Sinus bradycardia and No evidence of ischemia. Interpreted by me. Reviewed by me. Administered Medications: 23:33 Drug: NS 0.9% IV 1000 ml IV at 125 ml/hr once; to be given at 125 ml / hour Route: IV; bm8 Rate: 125 ml/hr; Site: right wrist; 10/24 05:26 Follow up: IV Status: Completed infusion kd3 10/23 23:34 Drug: NS 0.9% IV 500 ml 500 ml IV at 1 bolus once; to be given as a bolus over 30 bm8 minutes Volume: 500 ml; Route: IV; Rate: 1 bolus; Site: right wrist; 10/24 01:32 Follow up: Response: No adverse reaction; IV Status: Completed infusion bm8 01:55 Drug: Ketorolac IVP 15 mg IVP once Route: IVP; Site: right wrist; bm8 02:56 Follow up: Response: No adverse reaction bm8 01:55 Drug: Droperidol IVP 1.25 mg IVP once Route: IVP; Site: right wrist; bm8 02:56 Follow up: Response: No adverse reaction bm8 03:34 Drug: Pantoprazole IVP 40 mg IVP once Route: IVP; Site: right wrist; tb4 03:59 Follow up: Response: No adverse reaction bm8 03:34 Drug: Famotidine IVP 20 mg IVP once; dilute with 10 mL 0.9% NaCl; give over 2 minutes tb4 Route: IVP; Site: right wrist; 03:59 Follow up: Response: No adverse reaction bm8 Disposition Summary: 10/24/24 05:03 Discharge Ordered Problem: new sp4 Symptoms: have improved sp4 Condition: Stable sp4 Diagnosis - Acute moderate gastritis,, Upper abdominal pain with nausea sp4 Followup: sp4 - With: Gordon Fonseca MD - When: 7 - 10 days - Reason: Recheck today's complaints Discharge Instructions: - Discharge Summary Sheet sp4 - Gastritis, Adult, [id number] sp4 Forms: - Patient Portal Instructions sp4 Prescriptions: - famotidine 40 mg Oral tablet - take 1 tablet ORAL route daily; 90 tablet; Refills: 0, Product Selection sp4 Permitted - Protonix 40 mg Oral tablet, delayed release (enteric coated) - take 1 tablet ORAL route once daily; 90 tablet; Refills: 0, Product Selection sp4 Permitted - Tramadol 50 mg Oral tablet - take 1 tablet ORAL route every 8 hours PRN pain; 25 tablet; Refills: 0, Product sp4 Selection Permitted - ondansetron 8 mg Oral Tablet,disintegrating - take 1 tablet ORAL route every 8 hours PRN nausea; 30 tablet; Refills: 0, sp4 Product Selection Permitted Signatures: Dispatcher [employer] EDMS Paxton Hdz MD MD sp4 Heath Castañeda, RN RN bm8 Chantelle Holloway RN RN br2 Kaci Potter, RN RN tb4 Mariaa Tobin RN kd3 Corrections: (The following items were deleted from the chart) 10/23 23:38 23:15 LIPASE+C.LAB.BRZ ordered. EDMS EDMS 23:38 23:15 THYROID STIMULAT HORMONE+C.LAB.BRZ ordered. EDMS EDMS 23:38 23:15 T4 FREE+C.LAB.BRZ ordered. EDMS EDMS 23:38 23:15 CREATINE PHOSPHOKINASE+C.LAB.BRZ ordered. EDMS EDMS
[2024-10-24 12:31] VITALS: TEMP 97.8
[2024-10-24 12:38] VITALS: BP 124/64; O2SAT 99
== END 2024-10-24 05:26 | disposition home or self-care (01) ==
LOC: ER 23:01
DX: K29.00 Acute gastritis without bleeding (principal); R11.0 Nausea; R10.10 Upper abdominal pain, unspecified
CPT/HCPCS: 93005 ×2; 85025; 80048; 36415; 83735; 82550; 85610; 80076; 84443; 84484; 84439; 83690; 82533; 83880; 71250; 74176; 71045; J7040; J7030; 81001; J1790; J2470